=== PATIENT | male | born 1945 | race American Indian/Alaskan Native ===

== ENCOUNTER 2016-07-10 16:04 | Emergency (ER) | payer MEDICARE ==
[2016-07-10 16:05] VITALS: BMI 33.4
--- NOTE | 2016-07-10 17:13 | C.PDOC ---
History Of Present Illness 71 y/o male presents to the ED with complaints of headache, left upper back pain , left humerus and ankle pain s/p fall. Pt slipped on ice earlier today and fell hitting the back of his head, LOC for a couple seconds. Pt came to and knew where he was, no seizure activity, able to ambulate at scene. Pt denies vomiting, dizziness, chest pain, SOB or any other complaints. - HPI Time Seen by Provider: 07/10/16 16:56 Chief Complaint (Nursing): Trauma History Per: Patient History/Exam Limitations: no limitations Onset/Duration Of Symptoms: Hrs Location Of Injury: Left: Ankle, Arm, Posterior: Back, Head Severity: Mild Recent travel outside of the [place]: No - Fall Fall:Prior To Injury: Slipped Past Medical History Reviewed: Historical Data, Nursing Documentation, Vital Signs Vital Signs: Last Vital Signs Temp 98.1 F 07/10/16 19:12 Pulse 69 07/10/16 19:12 Resp 18 07/10/16 19:12 BP 133/76 07/10/16 19:12 Pulse Ox 99 07/10/16 20:18 - Medical History PMH: HTN, Hypercholesterolemia Family History: States: Unknown Family Hx - Social History Hx Alcohol Use: Yes Hx Substance Use: No - Immunization History Hx Tetanus Toxoid Vaccination: Yes Hx Influenza Vaccination: Yes Hx Pneumococcal Vaccination: Yes Review Of Systems Except As Marked, All Systems Reviewed And Found Negative. Cardiovascular: Negative for: Chest Pain Respiratory: Negative for: Shortness of Breath Gastrointestinal: Negative for: Vomiting Musculoskeletal: Positive for: Shoulder Pain (left), Arm Pain (left upper arm), Other (left ankle pain) Neurological: Positive for: Headache Physical Exam - Physical Exam Appears: Non-toxic, No Acute Distress Skin: Warm, Dry, No Rash, No Ecchymosis Head: Normacephalic, Tenderness (occiput), Swelling (minimal) Nose: Normal Neck: Normal ROM, Supple Chest: Symmetrical Cardiovascular: Rhythm Regular, No Murmur Respiratory: Normal Breath Sounds, No Rales, No Rhonchi, No Wheezing Gastrointestinal/Abdominal: Soft, No Tenderness Extremity: Tenderness (diffuse tenderness to left humerus, full ROM of left shoulder; left anterior and posterior ankle tenderness, no swelling or deformity , full ROM. ), Capillary Refill (<2 seconds), No Deformity, No Swelling Pulses: Left Dorsalis Pedis: Normal Neurological/Psych: Oriented x3, Normal Speech, Normal Cognition, Normal Motor, Normal Sensation ED Course And Treatment O2 Sat by Pulse Oximetry: 99 (on room air) Pulse Ox Interpretation: Normal - Other Rad XR left ankle X-Ray: Viewed By Me, Read By Radiologist Interpretation: Left ankle radiographs. Indication: Pain, twist injury. Comparison: None available. Findings: 3 mm ossific fragment noted adjacent to the medial malleolus, suspected to reflect a tiny avulsion fracture. Partially imaged suspected ossific excrescence about the posterior aspect of the mid to the distal fibula. The remainder the visualized osseous structures appear intact. Soft tissue swelling. Vascular calcifications. Calcaneal enthesophyte. Degenerative changes about the partially imaged midfoot. Impression: 3 mm ossific fragment noted adjacent to the medial malleolus, likely a tiny avulsion fracture. Partially imaged suspected ossific excrescence about the posterior aspect of the mid to the distal fibula. No prior study available for comparison. Correlate with physical exam to exclude point tenderness. Soft tissue swelling. - CT Scan/US CT head Other Rad Studies (CT/US): Read By Radiologist, Radiology Report Reviewed CT/US Interpretation: PROCEDURE: CT HEAD WITHOUT CONTRAST. HISTORY: head injury with LOC. COMPARISON: None available. TECHNIQUE: Axial computed tomography images were obtained through the head/brain without intravenous contrast. Radiation dose: Total exam DLP = 11 95.90 mGy-cm. FINDINGS: HEMORRHAGE: No intracranial hemorrhage. BRAIN: Mild atrophy with prominence of the ventricles and sulci noted. No mass effect or edema. Mild scattered white matter hypodensities, which are nonspecific, but often seen with chronic microvascular ischemic disease. Please note that MRI with diffusion imaging is more sensitive in the detection of acute ischemic event. VENTRICLES: No hydrocephalus. CALVARIUM: Unremarkable. PARANASAL SINUSES: Unremarkable as visualized. No significant inflammatory changes. MASTOID AIR CELLS: Under aeration of the mastoid air cells; correlate for history of chronic mastoiditis. OTHER FINDINGS: None. IMPRESSION: No acute intracranial pathology identified. Incidental findings as above. Progress Note: Plan: CT head, XR left ankle. Although xray shows small avulsion off medial malleolus patient is not tender over this area. He is tender laterally but minimally swollen. He was placed in an air cast and is comfortable and able to fully weight bear. Reevaluation Time: :58 Reassessment Condition: Improved Disposition Counseled Patient/Family Regarding: Studies Performed, Need For Followup - Disposition Referrals: Jeanette Waldron MD [Staff Provider] - Disposition: HOME/ ROUTINE Disposition Time: 21:38 Condition: IMPROVED Additional Instructions: Take Tylenol if needed for pain. Apply ice to posterior scalp and left ankle intermittently for 2days. Instructions: Head Injury (ED), Ankle Sprain (ED) - Clinical Impression Clinical Impression: Head injury with loss of consciousness, Ankle sprain - Scribe Statement The provider has reviewed the documentation as recorded by the Daronibjeremiah Edouard Provider Attestation: All medical record entries made by the Daronibjeremiah were at my direction and personally dictated by me. I have reviewed the chart and agree that the record accurately reflects my personal performance of the history, physical exam, medical decision making, and the department course for this patient. I have also personally directed, reviewed, and agree with the discharge instructions and disposition.
--- NOTE | 2016-07-10 18:15 | CT ---
PROCEDURE: CT HEAD WITHOUT CONTRAST. HISTORY: head injury with LOC COMPARISON: None available. TECHNIQUE: Axial computed tomography images were obtained through the head/brain without intravenous contrast. Radiation dose: Total exam DLP = 11 95.90 mGy-cm. FINDINGS: HEMORRHAGE: No intracranial hemorrhage. BRAIN: Mild atrophy with prominence of the ventricles and sulci noted. No mass effect or edema. Mild scattered white matter hypodensities, which are nonspecific, but often seen with chronic microvascular ischemic disease. Please note that MRI with diffusion imaging is more sensitive in the detection of acute ischemic event. VENTRICLES: No hydrocephalus. CALVARIUM: Unremarkable. PARANASAL SINUSES: Unremarkable as visualized. No significant inflammatory changes. MASTOID AIR CELLS: Under aeration of the mastoid air cells; correlate for history of chronic mastoiditis. OTHER FINDINGS: None. IMPRESSION: No acute intracranial pathology identified. Incidental findings as above.
--- NOTE | 2016-07-10 18:23 | RAD ---
Left ankle radiographs Indication: Pain, twist injury Comparison: None available Findings: 3 mm ossific fragment noted adjacent to the medial malleolus, suspected to reflect a tiny avulsion fracture. Partially imaged suspected ossific excrescence about the posterior aspect of the mid to the distal fibula. The remainder the visualized osseous structures appear intact. Soft tissue swelling. Vascular calcifications. Calcaneal enthesophyte. Degenerative changes about the partially imaged midfoot. Impression: 3 mm ossific fragment noted adjacent to the medial malleolus, likely a tiny avulsion fracture. Partially imaged suspected ossific excrescence about the posterior aspect of the mid to the distal fibula. No prior study available for comparison. Correlate with physical exam to exclude point tenderness. Soft tissue swelling.
[2016-07-10 22:06] VITALS: BP 131/87; PULSE 77; RESP 20; TEMP 98.4; O2SAT 98
== END 2016-07-10 22:15 | disposition home or self-care (01) ==
LOC: C.ER 16:04
DX: S06.9X1A Unspecified intracranial injury with loss of consciousness of 30 minutes or less, initial encounter (principal); S93.402A Sprain of unspecified ligament of left ankle, initial encounter; W00.0XXA Fall on same level due to ice and snow, initial encounter; Y92.414 Local residential or business street as the place of occurrence of the external cause

== ENCOUNTER 2017-01-22 15:22 | Inpatient (IN) | payer MEDICARE ==
[2017-01-22 15:23] VITALS: BMI 33.4
--- NOTE | 2017-01-22 16:00 | C.PDOC ---
History Of Present Illness 71 y/o male with Hx of DM, HTN and HLD presents to ED sent by Bistro Attendant (Dr. Garcia) for evaluation of worsening intermittent chest pain and sob with exertion. Patient states he has had symptoms since April but they have worsened in the past 1 month. Patient also reports legs swelling L>R for 1 month. He denies cough, fever, palpitations, abdominal pain, nausea/vomiting/ diarrhea. Time Seen by Provider: 01/22/17 15:31 Chief Complaint (Nursing): Chest Pain History Per: Patient History/Exam Limitations: no limitations Onset/Duration Of Symptoms: Days Current Symptoms Are (Timing): Still Present Severity: Mild Past Medical History Reviewed: Historical Data, Nursing Documentation, Vital Signs Vital Signs: Last Vital Signs Temp 98 F 01/24/17 07:30 Pulse 63 01/24/17 07:30 Resp 17 01/24/17 07:30 BP 127/71 01/24/17 07:30 Pulse Ox 97 01/24/17 07:30 - Medical History PMH: HTN, Hypercholesterolemia Surgical History: No Surg Hx Family History: States: No Known Family Hx - Social History Hx Alcohol Use: Yes Hx Substance Use: No - Immunization History Hx Tetanus Toxoid Vaccination: Yes Hx Influenza Vaccination: Yes Hx Pneumococcal Vaccination: Yes Review Of Systems Except As Marked, All Systems Reviewed And Found Negative. Constitutional: Negative for: Fever, Chills Cardiovascular: Positive for: Chest Pain. Negative for: Palpitations Respiratory: Positive for: SOB with Excertion. Negative for: Cough Gastrointestinal: Negative for: Nausea, Vomiting, Abdominal Pain, Diarrhea Musculoskeletal: Positive for: Leg Pain Physical Exam - Physical Exam Appears: Well, Non-toxic, No Acute Distress, Other (speaking in full sentences) Skin: Normal Color, Warm, Dry, No Rash Head: Normacephalic Eye(s): bilateral: Normal Inspection Oral Mucosa: Moist Cardiovascular: Rhythm Regular Respiratory: Normal Breath Sounds, No Rales, No Rhonchi, No Wheezing Gastrointestinal/Abdominal: Normal Exam, Bowel Sounds, Soft, No Tenderness Extremity: Pedal Edema (+1 pitting edema B/L LEs ), No Deformity Extremity: Bilateral: Normal ROM Neurological/Psych: Oriented x3 ED Course And Treatment - Laboratory Results Result Diagrams: 01/23/17 04:08 01/23/17 04:08 ECG: Interpreted By Me, Viewed By Me ECG Rhythm: Sinus Rhythm ECG Interpretation: Normal Interpretation Of ECG: Normal axis. No st acutechanges. T-Wave inversions in AVL, V1, V2 and V6. Compared to previous: T wave inversion in V6 is new Rate From EC (bpm) O2 Sat by Pulse Oximetry: 98 (ra) Pulse Ox Interpretation: Normal - Radiology CXR: Interpreted by Me, Viewed By Me CXR Interpretation: Yes: No Acute Disease. No: Infiltrates Progress Note: Bood work, ECG, CXR ordered and reviewed. Patient given PO ASA. 5:25pm- Spoke with Dr. Haider, he will see patient on cardiology consult. Patient to be admitted to medical service. Pending call back from Dr. Valerio. 6:22pm- Discussed patient with Dr. Valerio, agrees with telemetry admission to her service. - Physician Consult Information Physician Contacted: Jack Andino Outcome Of Conversation: Discussed patient with his cardioloigist Dr. Andino, would like patient admitted and to have nuclear stress test - he does not come to [facility] [place], requests Dr. Haider for cardiology. Disposition - Disposition Disposition: HOSPITALIZED Disposition Time: 18:22 Condition: STABLE - Clinical Impression Clinical Impression: Chest pain, Dyspnea - Scribe Statement The provider has reviewed the documentation as recorded by the Scribe Nargis Lewis All medical record entries made by the Scribe were at my direction and personally dictated by me. I have reviewed the chart and agree that the record accurately reflects my personal performance of the history, physical exam, medical decision making, and the department course for this patient. I have also personally directed, reviewed, and agree with the discharge instructions and disposition. Decision To Admit - Pt Status Changed To: Hospital Disposition Of: Inpatient - Admit Certification Admit to Inpatient:: After my assessment, the patient will require hospitalization for at least two midnights. This is because of the severity of symptoms shown, intensity of services needed, and/or the medical risk in this patient being treated as an outpatient. - InPatient: Physician Admission Certification: I certify that this patient requires 2 or more midnights of care for the following reason:: see notes - . Bed Request Type: Telemetry Admitting Physician: Gavin Batista Patient Diagnosis: Chest pain, Dyspnea
[2017-01-22 16:28] LABS: CHLORIDE 98 mmol/L (98-107); POTASSIUM 4.1 mmol/L (3.6-5.2); SODIUM 136 mmol/L (132-148)
[2017-01-22 16:30] LABS: ALB/GLOB RATIO 1.3 (1.0-2.1); ALKALINE PHOSPHATASE 57 U/L (38-126); AST/SGOT 21 U/L (17-59); BILIRUBIN,TOTAL 0.5 mg/dL (0.2-1.3); BLOOD UREA NITROGEN 16 mg/dL (9-20); CARBON DIOXIDE 24 mmol/L (22-30); GFR AFRICAN-AMERICAN > 60; TOTAL PROTEIN 6.8 g/dL (6.3-8.3)
[2017-01-22 16:31] LABS: ALT/SGPT 27 U/L (21-72); BASO % 0.8 % (0.0-2.0); CALCIUM 8.9 mg/dl (8.6-10.4); EOS # 0.2 K/uL (0.0-0.7); EOS % 3.8 % (0.0-4.0); GLUCOSE,RANDOM 85 mg/dL (75-110); HEMATOCRIT 41.2 % (35.0-51.0); LYMPH # 1.8 K/uL (1.0-4.3); LYMPH % 36.3 % (20.0-40.0); MEAN CELL VOLUME 69.6 fL (80.0-94.0); MEAN CORPUSCULAR HEMOGLOBIN 22.4 pg (27.0-31.0); MEAN CORPUSCULAR HGB CONC 32.2 g/dL (33.0-37.0); MEAN PLATELET VOLUME 8.8 fL (7.2-11.7); MONO # 0.7 K/uL (0.0-0.8); MONO % 14.3 % (0.0-10.0); NRBC % 0.2 % (0.0-2.0); RED CELL DISTRIBUTION WIDTH 17.8 % (11.5-14.5); WHITE BLOOD COUNT 4.9 K/uL (4.8-10.8)
[2017-01-22 16:37] LABS: PARTIAL THROMBOPLASTIN TIME 29 SECONDS (21-34)
--- NOTE | 2017-01-22 16:41 | RAD ---
PROCEDURE: CHEST RADIOGRAPH, 1 VIEW HISTORY: Shortness of breath COMPARISON: 03/11/2016. FINDINGS: LUNGS: The lungs are well inflated and clear. PLEURA: No pneumothorax or pleural fluid seen. CARDIOVASCULAR: Normal. OSSEOUS STRUCTURES: No significant abnormalities. VISUALIZED UPPER ABDOMEN: Normal. OTHER FINDINGS: None. IMPRESSION: No active pulmonary disease.
--- NOTE | 2017-01-22 21:37 | CP.PCM.HP ---
History of Present Illness - History of Present Illness History of Present Illness: pt is seen and examined,H&P dictated for dr. Arambula #[id number] Present on Admission - Present on Admission Any Indicators Present on Admission: No History of DVT/PE: No History of Uncontrolled Diabetes: No Urinary Catheter: No Past Patient History - Infectious Disease Hx of Infectious Diseases: None - Past Medical History & Family History Past Medical History?: Yes - Past Social History Smoking Status: Never Smoked - CARDIAC Hx Hypercholesterolemia: Yes Hx Hypertension: Yes - ENDOCRINE/METABOLIC Hx Diabetes Mellitus Type 2: Yes - MUSCULOSKELETAL/RHEUMATOLOGICAL Hx Falls: No - GENITOURINARY/GYNECOLOGICAL Hx Prostate Problems: Yes - PSYCHIATRIC Hx Substance Use: No - SURGICAL HISTORY Hx Surgeries: Yes Hx Joint Replacement: Yes (RT HIP) Other/Comment: Abdominal sx - ANESTHESIA Hx Anesthesia: Yes Hx Anesthesia Reactions: No Meds Allergies/Adverse Reactions: Allergies Allergy/AdvReac Type Severity Reaction Status Date / Time No Known Allergies Allergy Verified 01/22/17 15:37 Results - Vital Signs Recent Vital Signs: Last Vital Signs Temp 99.0 F 01/22/17 18:55 Pulse 64 01/22/17 18:55 Resp 12 01/22/17 18:55 BP 136/60 01/22/17 18:55 Pulse Ox 100 01/22/17 18:55 - Labs Result Diagrams: 01/22/17 16:10 01/22/17 16:10 Labs: Laboratory Results - last 24 hr 01/22/17 01/22/17 01/22/17 16:10 16:10 16:10 WBC 4.9 RBC 5.92 H Hgb 13.3 Hct 41.2 MCV 69.6 L MCH 22.4 L MCHC 32.2 L RDW 17.8 H Plt Count 171 MPV 8.8 Neut % (Auto) 44.8 L Lymph % (Auto) 36.3 [place] % (Auto) 14.3 H Eos % (Auto) 3.8 Baso % (Auto) 0.8 Neut # 2.2 Lymph # 1.8 [place] # 0.7 Eos # 0.2 Baso # 0.0 PT 11.1 INR 1.0 APTT 29 D-Dimer, Quantitative < 200 Sodium 136 Potassium 4.1 Chloride 98 Carbon Dioxide 24 Anion Gap 19 BUN 16 Creatinine 0.8 Est GFR ( Amer) > 60 Est GFR (Non-Af Amer) > 60 POC Glucose (mg/dL) Random Glucose 85 Calcium 8.9 Total Bilirubin 0.5 AST 21 ALT 27 Alkaline Phosphatase 57 Total Creatine Kinase 276 H CK-MB (Mass) 4.70 H Troponin I < 0.0120 NT-Pro-B Natriuret Pep 247 Total Protein 6.8 Albumin 3.8 Globulin 3.0 Albumin/Globulin Ratio 1.3 01/22/17 16:16 WBC RBC Hgb Hct MCV MCH MCHC RDW Plt Count MPV Neut % (Auto) Lymph % (Auto) [place] % (Auto) Eos % (Auto) Baso % (Auto) Neut # Lymph # [place] # Eos # Baso # PT INR APTT D-Dimer, Quantitative Sodium Potassium Chloride Carbon Dioxide Anion Gap BUN Creatinine Est GFR ( Amer) Est GFR (Non-Af Amer) POC Glucose (mg/dL) 98 Random Glucose Calcium Total Bilirubin AST ALT Alkaline Phosphatase Total Creatine Kinase CK-MB (Mass) Troponin I NT-Pro-B Natriuret Pep Total Protein Albumin Globulin Albumin/Globulin Ratio
[2017-01-23] MEDS: (Novolin R) Insulin Human Regular 100 units/ml vial SC SCH ×5 (00:47→22:00)
[2017-01-23 04:15] LABS: HEMATOCRIT 40.5 % (35.0-51.0); MEAN CELL VOLUME 69.4 fL (80.0-94.0); MEAN CORPUSCULAR HEMOGLOBIN 22.6 pg (27.0-31.0); MEAN CORPUSCULAR HGB CONC 32.6 g/dL (33.0-37.0); MEAN PLATELET VOLUME 8.9 fL (7.2-11.7); RED CELL DISTRIBUTION WIDTH 17.4 % (11.5-14.5); WHITE BLOOD COUNT 4.9 K/uL (4.8-10.8)
[2017-01-23 04:19] LABS: CHLORIDE 100 mmol/L (98-107); SODIUM 138 mmol/L (132-148)
[2017-01-23 04:20] LABS: POTASSIUM 4.1 mmol/L (3.6-5.2)
[2017-01-23 04:21] LABS: CARBON DIOXIDE 26 mmol/L (22-30); CHOLESTEROL 144 mg/dL (0-199); GFR AFRICAN-AMERICAN > 60
[2017-01-23 04:22] LABS: ALB/GLOB RATIO 1.2 (1.0-2.1); ALKALINE PHOSPHATASE 52 U/L (38-126); ALT/SGPT 31 U/L (21-72); AST/SGOT 21 U/L (17-59); BILIRUBIN,TOTAL 0.6 mg/dL (0.2-1.3); BLOOD UREA NITROGEN 14 mg/dL (9-20); CALCIUM 9.1 mg/dl (8.6-10.4); GLUCOSE,RANDOM 113 mg/dL (75-110); TOTAL PROTEIN 6.5 g/dL (6.3-8.3)
[2017-01-23 04:53] LABS: THYROID STIMULATING HORMONE 2.31 mIU/L (0.46-4.68)
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
--- NOTE | 2017-01-23 11:53 | CP.PCM.PN ---
Subjective - Date & Time of Evaluation Date of Evaluation: 01/23/17 Time of Evaluation: 11:20 - Subjective Subjective: Progress note dictated #[id number] Objective - Vital Signs/Intake and Output Vital Signs (last 24 hours): Temp Pulse Resp BP Pulse Ox 98 F 61 20 117/74 97 01/23/17 08:00 01/23/17 08:00 01/23/17 08:00 01/23/17 08:00 01/23/17 08:00 - Medications Medications: Current Medications Aspirin (Aspirin Chewable) 81 mg PO DAILY [facility] Last Admin: 01/23/17 11:27 Dose: Not Given Hydrochlorothiazide (Hydrodiuril) 25 mg PO DAILY [facility] Influenza Virus Vaccine (Afluria) 45 mcg IM .ONCE ONE Stop: 01/24/17 10:01 Insulin Human Regular (Novolin R) 0 unit SC ACHS [facility] PRN Reason: Protocol Last Admin: 01/23/17 07:50 Dose: Not Given Losartan Potassium (Cozaar) 100 mg PO DAILY [facility] Metformin HCl (Glucophage) 500 mg PO DAILY [facility] Metoprolol Succinate (Toprol Xl) 25 mg PO DAILY [facility] Multivitamins (Hexavitamin) 1 tab PO DAILY [facility] Pneumococcal Polyvalent Vaccine (Pneumovax 23 Vaccine) 0.5 ml IM .ONCE ONE Stop: 01/24/17 10:01 Rosuvastatin Calcium (Crestor) 10 mg PO HS [facility] Tamsulosin HCl (Flomax) 0.4 mg PO BID [facility] Last Admin: 01/23/17 00:46 Dose: 0.4 mg - Labs Labs: 01/23/17 04:08 01/23/17 04:08 PT 11.1 SECONDS (9.7-12.2) 01/22/17 16:10 INR 1.0 01/22/17 16:10 APTT 29 SECONDS (21-34) 01/22/17 16:10
--- NOTE | 2017-01-23 12:32 | CP.PCM.CON ---
History of Present Illness - History of Present Illness History of Present Illness: Patient is 71 year old male with PMH HTN, hypercholesterolemia, DM who presents with chest pain. The patiet describes a pressure like sensation in the left of his chest which developed over the last few weeks. The patient states his symptoms occur with exertion. The patient was noted to have associated dyspnea. He called his modern dancer (Dr. Andino) who recommended inpatient evaluation. Review of Systems - Constitutional Constitutional: absent: As Per HPI, Anorexia, Chills, Daytime Sleepiness, Excessive Sweating, Fatigue, Fever, Frequent Falls, Headache, Increased Appetite , Lethargy, Malaise, Night Sweats, Snoring, Sleep Apnea, Weight Gain, Weight Loss, Weakness, Other - EENT Eyes: absent: As Per HPI, Blind Spots, Blurred Vision, Change in Vision, Decreased Night Vision, Diplopia, Discharge, Dry Eye, Exophthalmos, Floaters, Irritation, Itchy Eyes, Loss of Peripheral Vision, Pain, Photophobia, Requires Corrective Lenses, Sees Flashes, Spots in Vision, Tunnel Vision, Other Visual Disturbances, Loss of Vision, Other Ears: absent: As Per HPI, Decreased Hearing, Ear Discharge, Ear Pain, Tinnitus, Abnormal Hearing, Disequilibrium, Dizziness, Other Nose/Mouth/Throat: absent: As Per HPI, Epistaxis, Nasal Congestion, Nasal Discharge, Nasal Obstruction, Nasal Trauma, Nose Pain, Post Nasal Drip, Sinus Pain, Sinus Pressure, Bleeding Gums, Change in Voice, Dental Pain, Dry Mouth, Dysphagia, Halitosis, Hoarsness, Lip Swelling, Mouth Lesions, Mouth Pain, Odynophagia, Sore Throat, Throat Swelling, Tongue Swelling, Facial Pain, Neck Pain, Neck Mass, Other - Cardiovascular Cardiovascular: Chest Pain, Dyspnea - Respiratory Respiratory: Dyspnea - Gastrointestinal Gastrointestinal: absent: As Per HPI, Abdominal Pain, Belching, Bloating, Change in Bowel Habits, Change in Stool Character, Coffee Ground Emesis, Constipation, Cramping, Diarrhea, Dyspepsia, Dysphagia, Early Satiety, Excessive Flatus, Fecal Incontinence, Heartburn, Hematemesis, Hematochezia, Loose Stools, Melena, Nausea, Odynophagia, Temesmus, Vomiting, Other - Genitourinary Genitourinary: absent: As Per HPI, Change in Urinary Stream, Difficulty Urinating, Dysuria, Flank Pain, Hematuria, Pyuria, Nocturia, Urinary Incontinence, Urinary Frequency, Urinary Hesitance, Urinary Urgency, Voiding Freq/Small Amts, Freq UTI, Hx Renal/Bladder Calculi, Hx /Renal Surgery, Bladder Distension, Other - Musculoskeletal Musculoskeletal: absent: As Per HPI, Abnormal Gait, Arthralgias, Atrophy, Back Pain, Deformity, Joint Swelling, Limited Range of Motion, Loss of Height, Muscle Cramps, Muscle Weakness, Myalgias, Neck Pain, Numbness, Radiating Pain into Limb, Stiffness, Tingling, Other - Integumentary Integumentary: absent: As Per HPI, Acne, Alopecia, Bleeding Lesions, Change in Hair, Change in Nails, Change in Pigmentation, Changing Lesions, Dry Skin, Erythema, Furuncle, Hirsutism, Lesions, New Lesions, Non-Healing Lesions, Photosensitivity, Pruritus, Rash, Skin Pain, Skin Ulcer, Sores, Striae, Swelling , Unusual Bruising, Wounds, Jaundice, Other - Neurological Neurological: absent: As Per HPI, Abnormal Gait, Abnormal Hearing, Abnormal Movements, Abnormal Speech, Behavioral Changes, Burning Sensations, Confusion, Convulsions, Disequilibrium, Dizziness, Numbness, Focal Weakness, Frequent Falls , Headaches, Lack of Coordination, Loss of Vision, Memory Loss, Paresthesias, Radicular Pain, Restless Legs, Sensory Deficit, Syncope, Tingling, Tremor, Vertigo, Weakness, Other Visual Disturbances, Other - Psychiatric Psychiatric: absent: As Per HPI, Abnormal Sleep Pattern, Anhedonia, Anxiety, Auditory Hallucinations, Behavioral Changes, Change in Appetite, Change in Libido, Confusion, Depression, Difficulty Concentrating, Hallucinations, Homicidal Ideation, Hopelessness, Irritability, Memory Loss, Mood Swings, Panic Attacks, Paranoia, Suicidal Ideation, Visual Hallucinations, Tactile Hallucinations, Other - Endocrine Endocrine: absent: As Per HPI, Change in Body Appearance, Change in Libido, Cold Intolorance, Deepening of Voice, Excessive Sweating, Fatigue, Flushing, Heat Intolorance, Increase in Ring/Shoe/Hat Size, Palpitations, Polydipsia, Polyphagia, Polyuria, Other - Hematologic/Lymphatic Hematologic: absent: As Per HPI, Easy Bleeding, Easy Bruising, Lymphadenopathy, Other Past Patient History - Infectious Disease Hx of Infectious Diseases: None - Past Medical History & Family History Past Medical History?: Yes - Past Social History Smoking Status: Never Smoked - CARDIAC Hx Hypercholesterolemia: Yes Hx Hypertension: Yes - ENDOCRINE/METABOLIC Hx Diabetes Mellitus Type 2: Yes - MUSCULOSKELETAL/RHEUMATOLOGICAL Hx Falls: No - GENITOURINARY/GYNECOLOGICAL Hx Prostate Problems: Yes - PSYCHIATRIC Hx Substance Use: No - SURGICAL HISTORY Hx Surgeries: Yes Hx Joint Replacement: Yes (RT HIP) Other/Comment: Abdominal sx - ANESTHESIA Hx Anesthesia: Yes Hx Anesthesia Reactions: No Meds Allergies/Adverse Reactions: Allergies Allergy/AdvReac Type Severity Reaction Status Date / Time No Known Allergies Allergy Verified 01/22/17 15:37 - Medications Medications: Current Medications Aspirin (Aspirin Chewable) 81 mg PO DAILY [facility] Last Admin: 01/23/17 11:27 Dose: Not Given Hydrochlorothiazide (Hydrodiuril) 25 mg PO DAILY [facility] Influenza Virus Vaccine (Afluria) 45 mcg IM .ONCE ONE Stop: 01/24/17 10:01 Insulin Human Regular (Novolin R) 0 unit SC ACHS [facility] PRN Reason: Protocol Last Admin: 01/23/17 07:50 Dose: Not Given Losartan Potassium (Cozaar) 100 mg PO DAILY [facility] Metformin HCl (Glucophage) 500 mg PO DAILY [facility] Metoprolol Succinate (Toprol Xl) 25 mg PO DAILY [facility] Multivitamins (Hexavitamin) 1 tab PO DAILY [facility] Pneumococcal Polyvalent Vaccine (Pneumovax 23 Vaccine) 0.5 ml IM .ONCE ONE Stop: 01/24/17 10:01 Rosuvastatin Calcium (Crestor) 10 mg PO HS [facility] Tamsulosin HCl (Flomax) 0.4 mg PO BID [facility] Last Admin: 01/23/17 00:46 Dose: 0.4 mg Physical Exam - Constitutional Appears: Non-toxic - Head Exam Head Exam: NORMAL INSPECTION - Eye Exam Eye Exam: Normal appearance - ENT Exam ENT Exam: Mucous Membranes Moist - Neck Exam Neck exam: Positive for: Full Rom - Respiratory Exam Respiratory Exam: NORMAL BREATHING PATTERN - Cardiovascular Exam Cardiovascular Exam: REGULAR RHYTHM - GI/Abdominal Exam GI & Abdominal Exam: Normal Bowel Sounds - Rectal Exam Rectal Exam: Deferred - Extremities Exam Extremities exam: Negative for: pedal edema - Back Exam Back exam: NORMAL INSPECTION - Neurological Exam Neurological exam: Alert, Oriented x3 - Psychiatric Exam Psychiatric exam: Normal Affect Results - Vital Signs Recent Vital Signs: Last Vital Signs Temp 98 F 01/23/17 08:00 Pulse 61 01/23/17 08:00 Resp 20 01/23/17 08:00 BP 117/74 01/23/17 08:00 Pulse Ox 97 01/23/17 08:00 - Labs Result Diagrams: 01/23/17 04:08 01/23/17 04:08 Labs: Laboratory Results - last 24 hr 01/22/17 01/22/17 01/22/17 16:10 16:10 16:10 WBC 4.9 RBC 5.92 H Hgb 13.3 Hct 41.2 MCV 69.6 L MCH 22.4 L MCHC 32.2 L RDW 17.8 H Plt Count 171 MPV 8.8 Neut % (Auto) 44.8 L Lymph % (Auto) 36.3 Piatt % (Auto) 14.3 H Eos % (Auto) 3.8 Baso % (Auto) 0.8 Neut # 2.2 Lymph # 1.8 Piatt # 0.7 Eos # 0.2 Baso # 0.0 Differential Comment PT 11.1 INR 1.0 APTT 29 D-Dimer, Quantitative < 200 Sodium 136 Potassium 4.1 Chloride 98 Carbon Dioxide 24 Anion Gap 19 BUN 16 Creatinine 0.8 Est GFR ( Amer) > 60 Est GFR (Non-Af Amer) > 60 POC Glucose (mg/dL) Random Glucose 85 Calcium 8.9 Total Bilirubin 0.5 AST 21 ALT 27 Alkaline Phosphatase 57 Total Creatine Kinase 276 H CK-MB (Mass) 4.70 H Troponin I < 0.0120 NT-Pro-B Natriuret Pep 247 Total Protein 6.8 Albumin 3.8 Globulin 3.0 Albumin/Globulin Ratio 1.3 Triglycerides Cholesterol LDL Cholesterol Direct HDL Cholesterol TSH 3rd Generation 01/22/17 01/23/17 01/23/17 16:16 00:46 04:08 WBC 4.9 RBC 5.83 Hgb 13.2 Hct 40.5 MCV 69.4 L MCH 22.6 L MCHC 32.6 L RDW 17.4 H Plt Count 158 MPV 8.9 Neut % (Auto) Lymph % (Auto) Piatt % (Auto) Eos % (Auto) Baso % (Auto) Neut # Lymph # Piatt # Eos # Baso # Differential Comment PT INR APTT D-Dimer, Quantitative Sodium Potassium Chloride Carbon Dioxide Anion Gap BUN Creatinine Est GFR ( Amer) Est GFR (Non-Af Amer) POC Glucose (mg/dL) 98 137 H Random Glucose Calcium Total Bilirubin AST ALT Alkaline Phosphatase Total Creatine Kinase CK-MB (Mass) Troponin I NT-Pro-B Natriuret Pep Total Protein Albumin Globulin Albumin/Globulin Ratio Triglycerides Cholesterol LDL Cholesterol Direct HDL Cholesterol TSH 3rd Generation 01/23/17 01/23/17 01/23/17 04:08 07:00 12:19 WBC RBC Hgb Hct MCV MCH MCHC RDW Plt Count MPV Neut % (Auto) Lymph % (Auto) Piatt % (Auto) Eos % (Auto) Baso % (Auto) Neut # Lymph # Piatt # Eos # Baso # Differential Comment PT INR APTT D-Dimer, Quantitative Sodium 138 Potassium 4.1 Chloride 100 Carbon Dioxide 26 Anion Gap 17 BUN 14 Creatinine 0.7 L Est GFR ( Amer) > 60 Est GFR (Non-Af Amer) > 60 POC Glucose (mg/dL) 141 H 188 H Random Glucose 113 H Calcium 9.1 Total Bilirubin 0.6 AST 21 ALT 31 Alkaline Phosphatase 52 Total Creatine Kinase CK-MB (Mass) Troponin I < 0.0120 NT-Pro-B Natriuret Pep Total Protein 6.5 Albumin 3.5 Globulin 3.0 Albumin/Globulin Ratio 1.2 Triglycerides 125 D Cholesterol 144 LDL Cholesterol Direct 100 HDL Cholesterol 33 TSH 3rd Generation 2.31 - EKG Data EKG Interpreted by: Myself EKG shows normal: Sinus rhythm Assessment & Plan (1) Chest pain Assessment and Plan: patient has cardiovascular risk factors. will need evaluatiion via nuclear perfusion imaging. Status: Acute (2) Non-insulin dependent type 2 diabetes mellitus Assessment and Plan: risk factor for CAD Status: Acute (3) Hypertension Assessment and Plan: will manage blood pressure Status: Acute
[2017-01-23] MEDS: Multiple Vitamins Tab PO SCH (12:35)
[2017-01-23] MEDS: Metoprolol Succinate 25 mg XL Tab PO SCH (12:35)
--- NOTE | 2017-01-23 14:12 | CARD ---
APPROVED REPORT EXAM: Two-dimensional and M-mode echocardiogram with Doppler and color Doppler. Other Information Quality : GoodRhythm : NSR INDICATION Dyspnea Chest Pain R/O ACS RISK FACTORS Hypertension Hyperlipidemia Diabetes 2D DIMENSIONS IVSd1.2 (0.7-1.1cm)LVDd4.5 (3.9-5.9cm) PWd1.2 (0.7-1.1cm)LVDs2.9 (2.5-4.0cm) FS (%) 35.9 %LVEF (%)65.7 (>50%) M-Mode DIMENSIONS Left Atrium (MM)4.56 (2.5-4.0cm)Aortic Root3.14 (2.2-3.7cm) Aortic Cusp Exc.2.21 (1.5-2.0cm) Mitral Valve MV E Qtrrkrnj51.8cm/sMV A Auwogdhx15.8cm/sE/A ratio1.0 TDI E/Lateral E'0.0E/Medial E'0.0 Tricuspid Valve TR Peak [id number]/sTR Peak Gr.[id number] LEFT VENTRICLE The left ventricle is normal size. There is mild concentric left ventricular hypertrophy. Left ventricle systolic function is normal. The Ejection Fraction is >70%. There is normal LV segmental wall motion. Transmitral Doppler flow pattern is Grade I-abnormal relaxation pattern. There is no ventricular septal defect visualized. RIGHT VENTRICLE The right ventricle is normal size. The right ventricular systolic function is normal. ATRIA The left atrium is borderline dilated. The right atrium size is normal. AORTIC VALVE The aortic valve is mildly sclerotic. The aortic valve is tri-cuspid. There is mild aortic regurgitation. There is no aortic valvular stenosis. MITRAL VALVE Mitral annular calcification is borderline. There is no evidence of mitral valve prolapse. Mitral regurgitation is mild. TRICUSPID VALVE The tricuspid valve is normal in structure. There is trace tricuspid regurgitation. There is no pulmonary hypertension. PULMONIC VALVE The pulmonic valve is not well visualized. There is trace pulmonic valvular regurgitation. GREAT VESSELS The aortic root is normal in size. The ascending aorta is normal in size. The IVC is normal in size and collapses >50% with inspiration. PERICARDIAL EFFUSION There is no pericardial effusion. <Conclusion> There is mild concentric left ventricular hypertrophy. Left ventricle systolic function is normal. The Ejection Fraction is >70%. Transmitral Doppler flow pattern is Grade I-abnormal relaxation pattern. There is mild aortic regurgitation. Mitral regurgitation is mild.
[2017-01-23] MEDS: Enoxaparin 40 mg Syringe SC SCH (14:52)
[2017-01-23 15:59] LABS: RBC URINE < 1 /hpf (0-3); URINE BILIRUBIN NEGATIVE (NEGATIVE); URINE BLOOD NEGATIVE (NEGATIVE); URINE COLOR Yellow (YELLOW); URINE GLUCOSE (UA) NORMAL (Normal); URINE KETONE NEGATIVE (NEGATIVE); URINE LEUKOCYTE ESTERASE TRACE Leu/uL (Negative); URINE PROTEIN NEGATIVE (NEGATIVE); URINE UROBILINOGEN NORMAL mg/dL (0.2-1.0); WBC URINE 3 /hpf (0-5)
--- NOTE | 2017-01-23 16:54 | CP.PCM.PN ---
Subjective - Date & Time of Evaluation Date of Evaluation: 01/23/17 Time of Evaluation: 16:50 - Subjective Subjective: stress test reviewed . normal myocardial perfusion patient stable for discharge Objective - Vital Signs/Intake and Output Vital Signs (last 24 hours): Temp Pulse Resp BP Pulse Ox 98 F 61 20 117/74 97 01/23/17 08:00 01/23/17 08:00 01/23/17 08:00 01/23/17 08:00 01/23/17 08:00 Intake and Output: 01/23/17 01/23/17 06:59 18:59 Intake Total 240 Balance 240 - Medications Medications: Current Medications Aspirin (Aspirin Chewable) 81 mg PO DAILY [facility] Last Admin: 01/23/17 12:35 Dose: 81 mg Enoxaparin Sodium (Lovenox) 40 mg SC DAILY [facility] Last Admin: 01/23/17 14:52 Dose: 40 mg Hydrochlorothiazide (Hydrodiuril) 25 mg PO DAILY [facility] Last Admin: 01/23/17 12:35 Dose: 25 mg Influenza Virus Vaccine (Afluria) 45 mcg IM .ONCE ONE Stop: 01/24/17 10:01 Insulin Human Regular (Novolin R) 0 unit SC [facility] PRN Reason: Protocol Last Admin: 01/23/17 12:34 Dose: 1 unit Losartan Potassium (Cozaar) 100 mg PO DAILY [facility] Last Admin: 01/23/17 12:35 Dose: 100 mg Metformin HCl (Glucophage) 500 mg PO DAILY [facility] Last Admin: 01/23/17 10:30 Dose: Not Given Metoprolol Succinate (Toprol Xl) 25 mg PO DAILY [facility] Last Admin: 01/23/17 12:35 Dose: 25 mg Multivitamins (Hexavitamin) 1 tab PO DAILY [facility] Last Admin: 01/23/17 12:35 Dose: 1 tab Pneumococcal Polyvalent Vaccine (Pneumovax 23 Vaccine) 0.5 ml IM .ONCE ONE Stop: 01/24/17 10:01 Rosuvastatin Calcium (Crestor) 10 mg PO [facility] Tamsulosin HCl (Flomax) 0.4 mg PO BID [facility] Last Admin: 01/23/17 12:35 Dose: 0.4 mg - Labs Labs: 01/23/17 04:08 01/23/17 04:08 PT 11.1 SECONDS (9.7-12.2) 01/22/17 16:10 INR 1.0 01/22/17 16:10 APTT 29 SECONDS (21-34) 01/22/17 16:10 Assessment and Plan (1) Chest pain Status: Acute (2) Non-insulin dependent type 2 diabetes mellitus Status: Acute (3) Hypertension Status: Acute
--- NOTE | 2017-01-24 08:01 | PN ---
DATE: 01/23/2017 SUBJECTIVE: The patient is seen and examined at bedside. The patient is undergoing stress test today. Denies any chest pain. Denies any shortness of breath. All other systems reviewed and was found to be negative. PHYSICAL EXAMINATION GENERAL: Elderly male, lying in bed, in no acute distress. VITAL SIGNS: Blood pressure 117/74, pulse 61, respirations 20, temperature 98 degrees Fahrenheit, O2 saturations 97% on room air. HEENT: Pupils equal, round, reacting to light and accommodation. Extraocular muscles intact. No icterus. No pallor. No oral thrush. No pharyngeal congestion. NECK: Supple. No JVD. CVS: S1 and S2 present, regular. LUNGS: Bilateral vesicular breath sounds. No wheezing. No rhonchi. ABDOMEN: Soft and nontender. Bowel sounds present. No guarding. No rigidity. No rebound tenderness noted. NETWORK RELATIONS CONSULTANT: Alert, awake and oriented x3. No focal deficits noted. EXTREMITIES: No edema. Palpable peripheral pulses. LABORATORY DATA: From today, WBC 4.9, hemoglobin 13.2, hematocrit 40.5, platelets 158. Sodium 138, potassium 4.1, chloride 100, bicarb 26, BUN 14, creatinine 0.7, glucose 141, calcium 9.1, total bilirubin 0.6. AST 21, ALT 31, alkaline phosphatase 52. Cardiac enzymes x3 negative. LFTs within normal limits. Triglycerides 125, cholesterol 144, LDL 100, HDL 33, TSH 2.31. UA negative. Echocardiogram consistent with EF more than . Mild aortic regurgitation. Mild mitral regurgitation. MEDICATIONS: Include aspirin 81 mg daily, Lovenox 40 mg subcutaneously daily, hydrochlorothiazide 25 mg daily, losartan 100 mg daily, Glucophage 500 mg daily, metoprolol 25 mg daily, multivitamin 1 tablet daily, Crestor 10 mg daily, Flomax 0.4 mg b.i.d. ASSESSMENT AND PLAN: Elderly male with past medical history of hypertension, diabetes mellitus, hyperlipidemia, admitted for dyspnea on exertion and chest pain and cardiac enzymes are negative so far. The patient is undergoing stress test. If stress test is negative and cleared by cardiology, we will plan discharging the patient home. We will continue the current medications. We will follow up with cardiology for further care. Gavin Batista MD [facility] # [phone]
[2017-01-24] MEDS: (Novolin R) Insulin Human Regular 100 units/ml vial SC SCH ×2 (08:02→12:17)
[2017-01-24 08:45] VITALS: BP 127/71; PULSE 63; RESP 17; TEMP 98
[2017-01-24] MEDS: Metoprolol Succinate 25 mg XL Tab PO SCH (09:14)
[2017-01-24] MEDS: Enoxaparin 40 mg Syringe SC SCH (09:14)
[2017-01-24] MEDS: Multiple Vitamins Tab PO SCH (09:22)
[2017-01-24] MEDS ORDERED: Influenza Virus Vaccine (Afluria Inactive dont use ) IM ONE (10:00)
[2017-01-24] MEDS ORDERED: Pneumococcal 23-Valent Vaccine IM ONE (10:00)
--- NOTE | 2017-01-24 14:23 | CP.PCM.PN ---
Subjective - Date & Time of Evaluation Date of Evaluation: 01/24/17 Time of Evaluation: 14:15 - Subjective Subjective: discharge summary dictated #[id number] Objective - Vital Signs/Intake and Output Vital Signs (last 24 hours): Temp Pulse Resp BP Pulse Ox 98 F 63 17 127/71 97 01/24/17 07:30 01/24/17 07:30 01/24/17 07:30 01/24/17 07:30 01/24/17 07:30 Intake and Output: 01/24/17 01/24/17 06:59 18:59 Intake Total 240 Balance 240 - Medications Medications: Current Medications Aspirin (Aspirin Chewable) 81 mg PO DAILY [facility] Last Admin: 01/24/17 09:14 Dose: 81 mg Enoxaparin Sodium (Lovenox) 40 mg SC DAILY [facility] Last Admin: 01/24/17 09:14 Dose: 40 mg Hydrochlorothiazide (Hydrodiuril) 25 mg PO DAILY [facility] Last Admin: 01/24/17 09:14 Dose: 25 mg Insulin Human Regular (Novolin R) 0 unit SC [facility] PRN Reason: Protocol Last Admin: 01/24/17 12:17 Dose: Not Given Losartan Potassium (Cozaar) 100 mg PO DAILY [facility] Last Admin: 01/24/17 09:14 Dose: 100 mg Metformin HCl (Glucophage) 500 mg PO DAILY [facility] Last Admin: 01/24/17 09:14 Dose: 500 mg Metoprolol Succinate (Toprol Xl) 25 mg PO DAILY [facility] Last Admin: 01/24/17 09:14 Dose: 25 mg Multivitamins (Hexavitamin) 1 tab PO DAILY [facility] Last Admin: 01/24/17 09:22 Dose: 1 tab Rosuvastatin Calcium (Crestor) 10 mg PO HS [facility] Last Admin: 01/23/17 21:16 Dose: 10 mg Tamsulosin HCl (Flomax) 0.4 mg PO BID [facility] Last Admin: 01/24/17 09:22 Dose: 0.4 mg - Labs Labs: 01/23/17 04:08 01/23/17 04:08 PT 11.1 SECONDS (9.7-12.2) 01/22/17 16:10 INR 1.0 01/22/17 16:10 APTT 29 SECONDS (21-34) 01/22/17 16:10
--- NOTE | 2017-01-25 02:42 | DS ---
DISCHARGE DIAGNOSES: Atypical chest pain with normal stress test as per cardiology, hypertension, hyperlipidemia, benign prostatic hypertrophy, and diabetes mellitus. HISTORY OF PRESENT ILLNESS: Mr. Bearden is a 71-year-old male with history of questionable nonobstructive coronary artery disease, hypertension, diabetes mellitus, hyperlipidemia, who has been following up with PMD and underwent cardiac catheterization in 2016, came to ED as recommended by his semaphore operator, Dr. Andino for symptoms of dyspnea on exertion to rule out any CAD or acute [place]. As stated, the patient is feeling much better. Denies any headache or dizziness. Denies any chest pain, shortness of breath, or wheezing. Denies any nausea, vomiting, abdominal pain, diarrhea, or constipation. All other systems reviewed and were found to be negative. PHYSICAL EXAMINATION: GENERAL: Elderly male, lying in bed, in no acute distress. VITAL SIGNS: Blood pressure 127/71, pulse 63, respirations 17, temperature 98 degrees Fahrenheit, and O2 saturations 97% on room air. HEENT: Pupils equal, round, and reactive to light and accommodation. Extraocular muscles intact. No icterus. No pallor. No oral thrush. No pharyngeal congestion. NECK: Supple. No JVD. No thyromegaly. CHEST: Lungs are clear bilaterally on respiration. Lungs, bilateral vesicular breath sounds. No wheezing. No rhonchi. CARDIOVASCULAR: S1 and S2 present, regular. ABDOMEN: Soft and nontender. Bowel sounds present. No guarding. No rigidity. No rebound tenderness noted. CENTRAL NERVOUS SYSTEM: Alert, awake, and oriented x3. No focal deficits noted. EXTREMITIES: No edema. Palpable peripheral pulses. LABORATORY DATA: Done from 01/23/2017, WBC 4.9, hemoglobin 13.2, hematocrit 40.5, and platelet 158. Sodium 138, potassium 4.1, chloride 100, bicarbonate 26, BUN 14, creatinine 0.7, glucose 141, calcium 9.1, total bilirubin 0.6, AST 21, and ALT 31. Cardiac enzymes x3 negative. Triglycerides 125, cholesterol 144, LDL 100, HDL 33, TSH 2.31. UA negative. As per cardiology, negative Myoview test. Echo with normal EF. HOSPITAL COURSE: The patient was admitted to the hospital for chest pain, rule out [place]. The patient was started on medication, evaluated by cardiology, and underwent Myoview stress test. As per cardiology, Myoview test was negative and the patient was cleared from cardiac standpoint. The patient is otherwise feeling better and doing well. The patient is being discharged and advised. The patient is to continue with his PMD and his semaphore operator. CONDITION UPON DISCHARGE: The patient is alert, awake, oriented x3, and hemodynamically stable. DISCHARGE MEDICATIONS: Aspirin 81 mg daily, atorvastatin 20 mg daily, hydrochlorothiazide 25 mg daily, metformin 500 mg daily, metoprolol 25 mg p.o. daily, multivitamin, Flomax 0.4 mg b.i.d., and valsartan 160 mg p.o. b.i.d. ACTIVITIES: As tolerated. DIET: Heart healthy, low sodium, low cholesterol, 1800-calorie ADA diet. DISCHARGE INSTRUCTIONS: Follow up with PMD. Follow up with cardiology. Please also refer to discharge medication reconciliation at the time of discharge. Gavin Batista MD
[2017-01-25 16:27] VITALS: O2SAT 98
== END 2017-01-24 15:28 | disposition home or self-care (01) | DRG 313 ==
LOC: C.ER 15:22 → C.9E 18:21 → C.6T 22:20
PROVIDERS: ADMIT Internal Medicine; ATTEND Internal Medicine
DX: R07.89 Other chest pain (principal); I25.10 Atherosclerotic heart disease of native coronary artery without angina pectoris; E11.9 Type 2 diabetes mellitus without complications; I10 Essential (primary) hypertension; E78.00 Pure hypercholesterolemia, unspecified; N40.0 Benign prostatic hyperplasia without lower urinary tract symptoms; Z79.84 Long term (current) use of oral hypoglycemic drugs; Z96.60 Presence of unspecified orthopedic joint implant

== ENCOUNTER 2017-08-15 17:39 | Inpatient (IN) | payer MEDICARE ==
[2017-08-15 17:39] VITALS: BMI 33.4
[2017-08-15 19:00] LABS: BASO % 0.7 % (0.0-2.0); EOS # 0.2 K/uL (0.0-0.7); EOS % 3.7 % (0.0-4.0); HEMOGLOBIN 13.3 g/dL (12.0-18.0); LYMPH # 1.8 K/uL (1.0-4.3); LYMPH % 36.4 % (20.0-40.0); MEAN CELL VOLUME 70.5 fL (80.0-94.0); MEAN CORPUSCULAR HEMOGLOBIN 22.5 pg (27.0-31.0); MEAN CORPUSCULAR HGB CONC 31.9 g/dL (33.0-37.0); MEAN PLATELET VOLUME 9.4 fL (7.2-11.7); MONO # 0.5 K/uL (0.0-0.8); MONO % 10.6 % (0.0-10.0); NEUT # 2.5 K/uL (1.8-7.0); NEUT % 48.6 % (50.0-75.0); NRBC % 0.1 % (0.0-2.0); RBC 5.92 Mil/uL (4.40-5.90); RED CELL DISTRIBUTION WIDTH 17.3 % (11.5-14.5); WHITE BLOOD COUNT 5.1 K/uL (4.8-10.8)
[2017-08-15 19:10] LABS: INR 0.9; PROTHROMBIN TIME 10.4 SECONDS (9.7-12.2)
--- NOTE | 2017-08-15 19:14 | C.PDOC ---
History Of Present Illness Patient presents to ED for complaints of SOB associated with chest discomfort and bilateral lower extremity edema. Patient states symptoms have worsened last few days which has prompted the ED visit. Patient is speaking in complete sentences. Denies fever, chills, nausea, and vomiting. Time Seen by Provider: 08/15/17 19:13 Chief Complaint (Nursing): Shortness Of Breath History Per: Patient History/Exam Limitations: no limitations Onset/Duration Of Symptoms: Hrs Current Symptoms Are (Timing): Still Present Exacerbating Factor(s): Exertion, Laying Flat Current Respiratory Medications: See Home Med List Severity: Moderate Pain Scale Rating Of: 4 Associated Symptoms: Other (Chest discomfort). denies: Fever, Chills Reports Recently: Treated By A Physician Recent travel outside of the [place]: No Additional History Per: Patient Past Medical History Reviewed: Historical Data, Nursing Documentation, Vital Signs Vital Signs: Last Vital Signs Temp 97.6 F 08/15/17 20:01 Pulse 75 08/15/17 20:01 Resp 16 08/15/17 20:01 BP 146/71 08/15/17 20:01 Pulse Ox 100 08/15/17 20:01 - Medical History PMH: HTN, Hypercholesterolemia Family History: States: No Known Family Hx - Social History Hx Alcohol Use: Yes Hx Substance Use: No - Immunization History Hx Tetanus Toxoid Vaccination: Yes Hx Influenza Vaccination: Yes Hx Pneumococcal Vaccination: Yes Review Of Systems Constitutional: Negative for: Fever, Chills ENT: Negative for: Throat Pain Cardiovascular: Positive for: Other (Chest discomfort) Respiratory: Positive for: Shortness of Breath. Negative for: Cough Gastrointestinal: Negative for: Nausea, Vomiting Musculoskeletal: Positive for: Other (Bilateral lower extremity edema). Negative for: Back Pain Skin: Negative for: Rash Neurological: Negative for: Weakness, Numbness Psych: Negative for: Anxiety, Suicidal ideation Physical Exam - Physical Exam Appears: Non-toxic, No Acute Distress Skin: Warm, Dry Head: Normacephalic Eye(s): bilateral: Normal Inspection Oral Mucosa: Moist Neck: Trachea Midline, Supple Chest: Symmetrical, No Tenderness Cardiovascular: Rhythm Regular Respiratory: No Decreased Breath Sounds, Rales (at bases), No Rhonchi, No Wheezing Gastrointestinal/Abdominal: Soft, No Tenderness Back: Normal Inspection Extremity: Pedal Edema (bilateral ), No Calf Tenderness Extremity: Bilateral: Atraumatic, Normal ROM Pulses: Left Dorsalis Pedis: Normal, Right Dorsalis Pedis: Normal Neurological/Psych: Oriented x3, Normal Speech, Normal Cognition, Other (no focal deficits) Gait: Steady ED Course And Treatment - Laboratory Results Result Diagrams: 08/15/17 18:55 08/15/17 18:55 O2 Sat by Pulse Oximetry: 95 (RA) Pulse Ox Interpretation: Normal Progress Note: Administered Aspirin. Ordered EKG, blood work, and CXR. Disposition Discussed With Dr.: Drake Garza Jr. Comment: accepted the pt on his service and took over the care at 8:45 AM Doctor Will See Patient In The: ED Counseled Patient/Family Regarding: Studies Performed, Diagnosis - Disposition Disposition: HOSPITALIZED Disposition Time: 19:13 Condition: FAIR Forms: [facility] (Telugu) - POA Present On Arrival: None - Clinical Impression Clinical Impression: Dyspnea, Chest pain - Scribe Statement The provider has reviewed the documentation as recorded by the Scribe Xander Su All medical record entries made by the Scribe were at my direction and personally dictated by me. I have reviewed the chart and agree that the record accurately reflects my personal performance of the history, physical exam, medical decision making, and the department course for this patient. I have also personally directed, reviewed, and agree with the discharge instructions and disposition. Decision To Admit - Pt Status Changed To: Hospital Disposition Of: Inpatient - Admit Certification Admit to Inpatient:: After my assessment, the patient will require hospitalization for at least two midnights. This is because of the severity of symptoms shown, intensity of services needed, and/or the medical risk in this patient being treated as an outpatient. - InPatient: Physician Admission Certification: I certify that this patient requires 2 or more midnights of care for the following reason:: After my assessment, the patient will require hospitalization for at least two midnights. This is because of the severity of symptoms shown, intensity of services needed, and/or the medical risk in this patient being treated as an outpatient. - . Bed Request Type: Telemetry Admitting Physician: Drake Garza Jr. Patient Diagnosis: Dyspnea, Chest pain
[2017-08-15 19:19] LABS: ALB/GLOB RATIO 1.1 (1.0-2.1); ALBUMIN 3.8 g/dL (3.5-5.0); ALT/SGPT 34 U/L (21-72); AST/SGOT 38 U/L (17-59); BLOOD UREA NITROGEN 7 mg/dL (9-20); CALCIUM 9.1 mg/dl (8.6-10.4); GFR AFRICAN-AMERICAN > 60; GFR NON-AFRICAN AMERICAN > 60
[2017-08-15 19:26] LABS: B-TYPE NATRIURETIC PEPTIDE 209 pg/mL (0-900); CK-MB 8.56 ng/mL (0.0-3.38)
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
[2017-08-15] MEDS ORDERED: Dextrose 50% SYRINGE Inj (50 ml) IV PRN (23:23)
[2017-08-15] MEDS ORDERED: Glucagon Recombinant 1 mg Inj IM PRN (23:23)
[2017-08-16 01:13] VITALS: RESP 20
[2017-08-16 01:58] LABS: CK-MB 9.39 ng/mL (0.0-3.38)
[2017-08-16 03:07] VITALS: O2SAT 96
[2017-08-16] MEDS ORDERED: (Novolin R) Insulin Human Regular 100 units/ml vial SC SCH (07:30)
[2017-08-16 07:32] LABS: BASO % 0.8 % (0.0-2.0); EOS # 0.2 K/uL (0.0-0.7); EOS % 4.8 % (0.0-4.0); HEMOGLOBIN 14.2 g/dL (12.0-18.0); LYMPH # 1.8 K/uL (1.0-4.3); LYMPH % 42.5 % (20.0-40.0); MEAN CELL VOLUME 70.9 fL (80.0-94.0); MEAN CORPUSCULAR HGB CONC 32.4 g/dL (33.0-37.0); MEAN PLATELET VOLUME 9.4 fL (7.2-11.7); MONO # 0.6 K/uL (0.0-0.8); MONO % 14.9 % (0.0-10.0); NEUT # 1.5 K/uL (1.8-7.0); NRBC % 0.1 % (0.0-2.0); RBC 6.17 Mil/uL (4.40-5.90); RED CELL DISTRIBUTION WIDTH 17.4 % (11.5-14.5); WHITE BLOOD COUNT 4.1 K/uL (4.8-10.8)
[2017-08-16 07:42] LABS: PROTHROMBIN TIME 11.6 SECONDS (9.7-12.2)
--- NOTE | 2017-08-16 07:57 | CP.PCM.PN ---
Subjective - Date & Time of Evaluation Date of Evaluation: 08/16/17 Time of Evaluation: 07:54 - Subjective Subjective: Patient seen and examined at bedside states he had 3 weeks of chest pain that became acutely worse 3 days ago. Associated with SOB Still complaining of chest pain but greatly reduced. Rates 5/10 Complains of swelling of the lower ext but on pe there is no edema present. Objective - Vital Signs/Intake and Output Vital Signs (last 24 hours): Temp Pulse Resp BP Pulse Ox 98 F 64 20 116/66 96 08/16/17 04:52 08/16/17 04:52 08/16/17 04:52 08/16/17 04:52 08/16/17 03:06 - Medications Medications: Current Medications Aspirin (Aspirin Chewable) 81 mg PO DAILY [facility] Carvedilol (Coreg) 3.125 mg PO BID [facility] Clopidogrel Bisulfate (Plavix) 75 mg PO DAILY [facility] Last Admin: 08/15/17 22:24 Dose: 75 mg Dextrose (Dextrose 50% Inj) 0 ml IV STAT PRN; Protocol PRN Reason: Hypoglycemia Protocol Dextrose (Glutose 15) 0 gm PO ONCE PRN; Protocol PRN Reason: Hypoglycemia Protocol Famotidine (Pepcid) 20 mg PO DAILY [facility] Furosemide (Lasix) 40 mg IVP DAILY [facility] Last Admin: 08/15/17 22:23 Dose: 40 mg Glucagon (Glucagen Diagnostic Kit) 0 mg IM STAT PRN; Protocol PRN Reason: Hypoglycemia Protocol Hydrochlorothiazide (Hydrodiuril) 25 mg PO DAILY [facility] Dextrose (Dextrose 5% In Water 1000 Ml) 1,000 mls @ 0 mls/hr IV .Q0M PRN; Protocol; Per Protocol PRN Reason: Hypoglycemia Protocol Insulin Human Regular (Novolin R) 0 unit SC ACHS [facility] PRN Reason: Protocol Losartan Potassium (Cozaar) 100 mg PO DAILY [facility] Metformin HCl (Glucophage) 500 mg PO DAILY [facility] Rosuvastatin Calcium (Crestor) 10 mg PO HS [facility] Last Admin: 08/15/17 22:23 Dose: 10 mg Tamsulosin HCl (Flomax) 0.4 mg PO DAILY [facility] - Labs Labs: 08/16/17 07:18 08/15/17 18:55 PT 11.6 SECONDS (9.7-12.2) 08/16/17 07:18 INR 1.0 08/16/17 07:18 APTT 33 SECONDS (21-34) 08/16/17 07:18 - Constitutional Appears: Well - Head Exam Head Exam: ATRAUMATIC, NORMAL INSPECTION, NORMOCEPHALIC - Eye Exam Eye Exam: EOMI, Normal appearance, PERRL Pupil Exam: NORMAL ACCOMODATION, PERRL - ENT Exam ENT Exam: Mucous Membranes Moist, Normal Exam - Neck Exam Neck Exam: Full ROM, Normal Inspection. absent: Lymphadenopathy - Respiratory Exam Respiratory Exam: Clear to Ausculation Bilateral, NORMAL BREATHING PATTERN - Cardiovascular Exam Cardiovascular Exam: REGULAR RHYTHM, +S1, +S2. absent: Murmur - GI/Abdominal Exam GI & Abdominal Exam: Soft, Normal Bowel Sounds. absent: Tenderness - Extremities Exam Extremities Exam: absent: Joint Swelling, Pedal Edema - Back Exam Back Exam: NORMAL INSPECTION - Neurological Exam Neurological Exam: Alert, Awake, CN II-XII Intact, Normal Gait, Oriented x3 - Psychiatric Exam Psychiatric exam: Normal Affect, Normal Mood - Skin Skin Exam: Dry, Intact, Normal Color, Warm
[2017-08-16 07:59] LABS: ALB/GLOB RATIO 1.1 (1.0-2.1); ALT/SGPT 33 U/L (21-72); AST/SGOT 36 U/L (17-59); BLOOD UREA NITROGEN 8 mg/dL (9-20); CALCIUM 9.3 mg/dl (8.6-10.4); GFR AFRICAN-AMERICAN > 60; GFR NON-AFRICAN AMERICAN > 60; HDL CHOLESTEROL 43 mg/dL (30-70)
[2017-08-16 08:04] LABS: LDL CHOLESTEROL 85 mg/dL (0-129)
--- NOTE | 2017-08-16 08:34 | CP.PCM.CON ---
History of Present Illness - History of Present Illness History of Present Illness: patient seen/examined full consult to follow. chest pain and neck pain for the last 3 weeks. on examination the patinet is VERY tender in the left upper chest on palpation. CPK is elevated, but cardiac ezymesare negative. negative stress test December 2016. appears muscular. check echo consider CT chest to assess for soft tissue mass swelling Past Patient History - Infectious Disease Hx of Infectious Diseases: None - Past Medical History & Family History Past Medical History?: Yes - Past Social History Smoking Status: Never Smoked - CARDIAC Hx Cardiac Disorders: Yes Hx Hypercholesterolemia: Yes Hx Hypertension: Yes - PULMONARY Hx Respiratory Disorders: No - NEUROLOGICAL Hx Neurological Disorder: No - HEENT Hx HEENT Problems: Yes Other/Comment: Blurry Vision,wears eyeglasses - RENAL Hx Chronic Kidney Disease: No - ENDOCRINE/METABOLIC Hx Endocrine Disorders: Yes Hx Diabetes Mellitus Type 2: Yes - HEMATOLOGICAL/ONCOLOGICAL Hx Blood Disorders: No - INTEGUMENTARY Hx Dermatological Problems: No - MUSCULOSKELETAL/RHEUMATOLOGICAL Hx Musculoskeletal Disorders: No Hx Falls: No - GASTROINTESTINAL Hx Gastrointestinal Disorders: No - GENITOURINARY/GYNECOLOGICAL Hx Genitourinary Disorders: Yes Hx Prostate Problems: Yes - PSYCHIATRIC Hx Psychophysiologic Disorder: No Hx Substance Use: No - SURGICAL HISTORY Hx Surgeries: Yes Hx Joint Replacement: Yes (RT HIP 53 years ago) Other/Comment: Abdominal sx - ANESTHESIA Hx Anesthesia: Yes Hx Anesthesia Reactions: No Hx Malignant Hyperthermia: No Has any member of the family had a problem w/ anesthesia?: No Meds Allergies/Adverse Reactions: Allergies Allergy/AdvReac Type Severity Reaction Status Date / Time No Known Allergies Allergy Verified 01/22/17 15:37 - Medications Medications: Current Medications Aspirin (Aspirin Chewable) 81 mg PO DAILY [facility] Carvedilol (Coreg) 3.125 mg PO BID [facility] Clopidogrel Bisulfate (Plavix) 75 mg PO DAILY [facility] Last Admin: 08/15/17 22:24 Dose: 75 mg Dextrose (Dextrose 50% Inj) 0 ml IV STAT PRN; Protocol PRN Reason: Hypoglycemia Protocol Dextrose (Glutose 15) 0 gm PO ONCE PRN; Protocol PRN Reason: Hypoglycemia Protocol Famotidine (Pepcid) 20 mg PO DAILY [facility] Furosemide (Lasix) 40 mg IVP DAILY [facility] Last Admin: 08/15/17 22:23 Dose: 40 mg Glucagon (Glucagen Diagnostic Kit) 0 mg IM STAT PRN; Protocol PRN Reason: Hypoglycemia Protocol Hydrochlorothiazide (Hydrodiuril) 25 mg PO DAILY [facility] Dextrose (Dextrose 5% In Water 1000 Ml) 1,000 mls @ 0 mls/hr IV .Q0M PRN; Protocol; Per Protocol PRN Reason: Hypoglycemia Protocol Insulin Human Regular (Novolin R) 0 unit SC ACHS [facility] PRN Reason: Protocol Losartan Potassium (Cozaar) 100 mg PO DAILY [facility] Metformin HCl (Glucophage) 500 mg PO DAILY [facility] Rosuvastatin Calcium (Crestor) 10 mg PO HS [facility] Last Admin: 08/15/17 22:23 Dose: 10 mg Tamsulosin HCl (Flomax) 0.4 mg PO DAILY [facility] Results - Vital Signs Recent Vital Signs: Last Vital Signs Temp 98 F 08/16/17 04:52 Pulse 67 08/16/17 07:35 Resp 20 08/16/17 04:52 BP 116/66 08/16/17 04:52 Pulse Ox 96 08/16/17 03:06 - Labs Result Diagrams: 08/16/17 07:18 08/16/17 07:18 Labs: Laboratory Results - last 24 hr 08/15/17 08/15/17 08/15/17 17:59 18:55 18:55 WBC 5.1 RBC 5.92 H Hgb 13.3 Hct 41.7 MCV 70.5 L MCH 22.5 L MCHC 31.9 L RDW 17.3 H Plt Count 185 MPV 9.4 Neut % (Auto) 48.6 L Lymph % (Auto) 36.4 [place] % (Auto) 10.6 H Eos % (Auto) 3.7 Baso % (Auto) 0.7 Neut # (Auto) 2.5 Lymph # (Auto) 1.8 [place] # (Auto) 0.5 Eos # (Auto) 0.2 Baso # (Auto) 0.0 PT 10.4 INR 0.9 APTT 34 Sodium Potassium Chloride Carbon Dioxide Anion Gap BUN Creatinine Est GFR ( Amer) Est GFR (Non-Af Amer) POC Glucose (mg/dL) 113 H Random Glucose Calcium Phosphorus Magnesium Total Bilirubin AST ALT Alkaline Phosphatase Total Creatine Kinase CK-MB (Mass) Troponin I NT-Pro-B Natriuret Pep Total Protein Albumin Globulin Albumin/Globulin Ratio Triglycerides Cholesterol LDL Cholesterol Direct HDL Cholesterol Free T4 TSH 3rd Generation 08/15/17 08/15/17 08/16/17 18:55 22:04 01:26 WBC RBC Hgb Hct MCV MCH MCHC RDW Plt Count MPV Neut % (Auto) Lymph % (Auto) [place] % (Auto) Eos % (Auto) Baso % (Auto) Neut # (Auto) Lymph # (Auto) [place] # (Auto) Eos # (Auto) Baso # (Auto) PT INR APTT Sodium 139 Potassium 3.7 Chloride 97 L Carbon Dioxide 27 Anion Gap 19 BUN 7 L Creatinine 0.8 Est GFR ( Amer) > 60 Est GFR (Non-Af Amer) > 60 POC Glucose (mg/dL) 159 H Random Glucose 108 Calcium 9.1 Phosphorus Magnesium Total Bilirubin 0.4 AST 38 ALT 34 Alkaline Phosphatase 57 Total Creatine Kinase 766 H 641 H CK-MB (Mass) 8.56 H 9.39 H Troponin I < 0.0120 < 0.0120 NT-Pro-B Natriuret Pep 209 Total Protein 7.3 Albumin 3.8 Globulin 3.5 Albumin/Globulin Ratio 1.1 Triglycerides Cholesterol LDL Cholesterol Direct HDL Cholesterol Free T4 TSH 3rd Generation 08/16/17 08/16/17 08/16/17 06:57 07:18 07:18 WBC RBC Hgb Hct MCV MCH MCHC RDW Plt Count MPV Neut % (Auto) Lymph % (Auto) [place] % (Auto) Eos % (Auto) Baso % (Auto) Neut # (Auto) Lymph # (Auto) [place] # (Auto) Eos # (Auto) Baso # (Auto) PT INR APTT Sodium 138 Potassium 3.6 Chloride 97 L Carbon Dioxide 26 Anion Gap 18 BUN 8 L Creatinine 1.0 Est GFR ( Amer) > 60 Est GFR (Non-Af Amer) > 60 POC Glucose (mg/dL) 134 H Random Glucose 139 H Calcium 9.3 Phosphorus 3.4 Magnesium 1.9 Total Bilirubin 1.0 AST 36 ALT 33 Alkaline Phosphatase 69 Total Creatine Kinase CK-MB (Mass) Troponin I NT-Pro-B Natriuret Pep Total Protein 7.6 Albumin 4.0 Globulin 3.6 Albumin/Globulin Ratio 1.1 Triglycerides 141 Cholesterol 149 LDL Cholesterol Direct 85 HDL Cholesterol 43 Free T4 1.56 TSH 3rd Generation 2.46 08/16/17 08/16/17 08/16/17 07:18 07:18 07:36 WBC 4.1 L RBC 6.17 H Hgb 14.2 Hct 43.8 MCV 70.9 L MCH 23.0 L MCHC 32.4 L RDW 17.4 H Plt Count 174 MPV 9.4 Neut % (Auto) 37.0 L Lymph % (Auto) 42.5 H [place] % (Auto) 14.9 H Eos % (Auto) 4.8 H Baso % (Auto) 0.8 Neut # (Auto) 1.5 L Lymph # (Auto) 1.8 [place] # (Auto) 0.6 Eos # (Auto) 0.2 Baso # (Auto) 0.0 PT 11.6 INR 1.0 APTT 33 Sodium Potassium Chloride Carbon Dioxide Anion Gap BUN Creatinine Est GFR ( Amer) Est GFR (Non-Af Amer) POC Glucose (mg/dL) 133 H Random Glucose Calcium Phosphorus Magnesium Total Bilirubin AST ALT Alkaline Phosphatase Total Creatine Kinase CK-MB (Mass) Troponin I NT-Pro-B Natriuret Pep Total Protein Albumin Globulin Albumin/Globulin Ratio Triglycerides Cholesterol LDL Cholesterol Direct HDL Cholesterol Free T4 TSH 3rd Generation
--- NOTE | 2017-08-16 08:35 | CP.PCM.CON ---
Past Patient History - Infectious Disease Hx of Infectious Diseases: None - Past Medical History & Family History Past Medical History?: Yes - Past Social History Smoking Status: Never Smoked - CARDIAC Hx Cardiac Disorders: Yes Hx Hypercholesterolemia: Yes Hx Hypertension: Yes - PULMONARY Hx Respiratory Disorders: No - NEUROLOGICAL Hx Neurological Disorder: No - HEENT Hx HEENT Problems: Yes Other/Comment: Blurry Vision,wears eyeglasses - RENAL Hx Chronic Kidney Disease: No - ENDOCRINE/METABOLIC Hx Endocrine Disorders: Yes Hx Diabetes Mellitus Type 2: Yes - HEMATOLOGICAL/ONCOLOGICAL Hx Blood Disorders: No - INTEGUMENTARY Hx Dermatological Problems: No - MUSCULOSKELETAL/RHEUMATOLOGICAL Hx Musculoskeletal Disorders: No Hx Falls: No - GASTROINTESTINAL Hx Gastrointestinal Disorders: No - GENITOURINARY/GYNECOLOGICAL Hx Genitourinary Disorders: Yes Hx Prostate Problems: Yes - PSYCHIATRIC Hx Psychophysiologic Disorder: No Hx Substance Use: No - SURGICAL HISTORY Hx Surgeries: Yes Hx Joint Replacement: Yes (RT HIP 53 years ago) Other/Comment: Abdominal sx - ANESTHESIA Hx Anesthesia: Yes Hx Anesthesia Reactions: No Hx Malignant Hyperthermia: No Has any member of the family had a problem w/ anesthesia?: No Meds Allergies/Adverse Reactions: Allergies Allergy/AdvReac Type Severity Reaction Status Date / Time No Known Allergies Allergy Verified 01/22/17 15:37 - Medications Medications: Current Medications Aspirin (Aspirin Chewable) 81 mg PO DAILY [facility] Carvedilol (Coreg) 3.125 mg PO BID [facility] Clopidogrel Bisulfate (Plavix) 75 mg PO DAILY [facility] Last Admin: 08/15/17 22:24 Dose: 75 mg Dextrose (Dextrose 50% Inj) 0 ml IV STAT PRN; Protocol PRN Reason: Hypoglycemia Protocol Dextrose (Glutose 15) 0 gm PO ONCE PRN; Protocol PRN Reason: Hypoglycemia Protocol Famotidine (Pepcid) 20 mg PO DAILY [facility] Furosemide (Lasix) 40 mg IVP DAILY [facility] Last Admin: 08/15/17 22:23 Dose: 40 mg Glucagon (Glucagen Diagnostic Kit) 0 mg IM STAT PRN; Protocol PRN Reason: Hypoglycemia Protocol Hydrochlorothiazide (Hydrodiuril) 25 mg PO DAILY [facility] Dextrose (Dextrose 5% In Water 1000 Ml) 1,000 mls @ 0 mls/hr IV .Q0M PRN; Protocol; Per Protocol PRN Reason: Hypoglycemia Protocol Insulin Human Regular (Novolin R) 0 unit SC ACHS [facility] PRN Reason: Protocol Losartan Potassium (Cozaar) 100 mg PO DAILY [facility] Metformin HCl (Glucophage) 500 mg PO DAILY [facility] Rosuvastatin Calcium (Crestor) 10 mg PO HS [facility] Last Admin: 08/15/17 22:23 Dose: 10 mg Tamsulosin HCl (Flomax) 0.4 mg PO DAILY [facility] Results - Vital Signs Recent Vital Signs: Last Vital Signs Temp 98 F 08/16/17 04:52 Pulse 67 08/16/17 07:35 Resp 20 08/16/17 04:52 BP 116/66 08/16/17 04:52 Pulse Ox 96 08/16/17 03:06 - Labs Result Diagrams: 08/16/17 07:18 08/16/17 07:18 Labs: Laboratory Results - last 24 hr 08/15/17 08/15/17 08/15/17 17:59 18:55 18:55 WBC 5.1 RBC 5.92 H Hgb 13.3 Hct 41.7 MCV 70.5 L MCH 22.5 L MCHC 31.9 L RDW 17.3 H Plt Count 185 MPV 9.4 Neut % (Auto) 48.6 L Lymph % (Auto) 36.4 [place] % (Auto) 10.6 H Eos % (Auto) 3.7 Baso % (Auto) 0.7 Neut # (Auto) 2.5 Lymph # (Auto) 1.8 [place] # (Auto) 0.5 Eos # (Auto) 0.2 Baso # (Auto) 0.0 PT 10.4 INR 0.9 APTT 34 Sodium Potassium Chloride Carbon Dioxide Anion Gap BUN Creatinine Est GFR ( Amer) Est GFR (Non-Af Amer) POC Glucose (mg/dL) 113 H Random Glucose Calcium Phosphorus Magnesium Total Bilirubin AST ALT Alkaline Phosphatase Total Creatine Kinase CK-MB (Mass) Troponin I NT-Pro-B Natriuret Pep Total Protein Albumin Globulin Albumin/Globulin Ratio Triglycerides Cholesterol LDL Cholesterol Direct HDL Cholesterol Free T4 TSH 3rd Generation 08/15/17 08/15/17 08/16/17 18:55 22:04 01:26 WBC RBC Hgb Hct MCV MCH MCHC RDW Plt Count MPV Neut % (Auto) Lymph % (Auto) [place] % (Auto) Eos % (Auto) Baso % (Auto) Neut # (Auto) Lymph # (Auto) [place] # (Auto) Eos # (Auto) Baso # (Auto) PT INR APTT Sodium 139 Potassium 3.7 Chloride 97 L Carbon Dioxide 27 Anion Gap 19 BUN 7 L Creatinine 0.8 Est GFR ( Amer) > 60 Est GFR (Non-Af Amer) > 60 POC Glucose (mg/dL) 159 H Random Glucose 108 Calcium 9.1 Phosphorus Magnesium Total Bilirubin 0.4 AST 38 ALT 34 Alkaline Phosphatase 57 Total Creatine Kinase 766 H 641 H CK-MB (Mass) 8.56 H 9.39 H Troponin I < 0.0120 < 0.0120 NT-Pro-B Natriuret Pep 209 Total Protein 7.3 Albumin 3.8 Globulin 3.5 Albumin/Globulin Ratio 1.1 Triglycerides Cholesterol LDL Cholesterol Direct HDL Cholesterol Free T4 TSH 3rd Generation 08/16/17 08/16/17 08/16/17 06:57 07:18 07:18 WBC RBC Hgb Hct MCV MCH MCHC RDW Plt Count MPV Neut % (Auto) Lymph % (Auto) [place] % (Auto) Eos % (Auto) Baso % (Auto) Neut # (Auto) Lymph # (Auto) [place] # (Auto) Eos # (Auto) Baso # (Auto) PT INR APTT Sodium 138 Potassium 3.6 Chloride 97 L Carbon Dioxide 26 Anion Gap 18 BUN 8 L Creatinine 1.0 Est GFR ( Amer) > 60 Est GFR (Non-Af Amer) > 60 POC Glucose (mg/dL) 134 H Random Glucose 139 H Calcium 9.3 Phosphorus 3.4 Magnesium 1.9 Total Bilirubin 1.0 AST 36 ALT 33 Alkaline Phosphatase 69 Total Creatine Kinase CK-MB (Mass) Troponin I NT-Pro-B Natriuret Pep Total Protein 7.6 Albumin 4.0 Globulin 3.6 Albumin/Globulin Ratio 1.1 Triglycerides 141 Cholesterol 149 LDL Cholesterol Direct 85 HDL Cholesterol 43 Free T4 1.56 TSH 3rd Generation 2.46 08/16/17 08/16/17 08/16/17 07:18 07:18 07:36 WBC 4.1 L RBC 6.17 H Hgb 14.2 Hct 43.8 MCV 70.9 L MCH 23.0 L MCHC 32.4 L RDW 17.4 H Plt Count 174 MPV 9.4 Neut % (Auto) 37.0 L Lymph % (Auto) 42.5 H [place] % (Auto) 14.9 H Eos % (Auto) 4.8 H Baso % (Auto) 0.8 Neut # (Auto) 1.5 L Lymph # (Auto) 1.8 [place] # (Auto) 0.6 Eos # (Auto) 0.2 Baso # (Auto) 0.0 PT 11.6 INR 1.0 APTT 33 Sodium Potassium Chloride Carbon Dioxide Anion Gap BUN Creatinine Est GFR ( Amer) Est GFR (Non-Af Amer) POC Glucose (mg/dL) 133 H Random Glucose Calcium Phosphorus Magnesium Total Bilirubin AST ALT Alkaline Phosphatase Total Creatine Kinase CK-MB (Mass) Troponin I NT-Pro-B Natriuret Pep Total Protein Albumin Globulin Albumin/Globulin Ratio Triglycerides Cholesterol LDL Cholesterol Direct HDL Cholesterol Free T4 TSH 3rd Generation
--- NOTE | 2017-08-16 08:59 | RAD ---
PROCEDURE: CHEST RADIOGRAPH, 1 VIEW HISTORY: baseline COMPARISON: Portable chest 01/22/2017. FINDINGS: LUNGS: No acute infiltrate bilaterally. Borderline left hemidiaphragm elevation, nonspecific finding. PLEURA: No pneumothorax or pleural fluid seen. CARDIOVASCULAR: Normal. OSSEOUS STRUCTURES: No significant abnormalities. VISUALIZED UPPER ABDOMEN: Normal. OTHER FINDINGS: None. IMPRESSION: No acute infiltrate, pleural effusion or pneumothorax. No definite interval acute cardiovascular disease. Borderline left hemidiaphragm elevation noted.
[2017-08-16 09:37] VITALS: PULSE 72; TEMP 97.6
[2017-08-16 09:56] VITALS: BP 121/70
[2017-08-16] MEDS ORDERED: Enoxaparin 40 mg Syringe SC SCH (10:00)
--- NOTE | 2017-08-16 11:21 | RAD ---
PROCEDURE: Radiographs of the Left Shoulder HISTORY: shoulder pain after lifitng weights COMPARISON: No prior. FINDINGS: BONES: No acute fracture or destructive bony lesion identified. JOINTS: [id number] degenerative changes seen the acromioclavicular and glenohumeral joints without subluxation or dislocation apparent. SOFT TISSUES: Normal. OTHER FINDINGS: None. IMPRESSION: Degenerative changes appear [id number] as discussed above but no fracture, dislocation or destructive bony lesion is appreciated at this time.
[2017-08-16 14:00] LABS: CK-MB 5.43 ng/mL (0.0-3.38)
--- NOTE | 2017-08-16 14:48 | CP.PCM.DIS ---
Provider - Provider Date of Admission: 08/15/17 20:44 Attending physician: Drake Garza Jr, MD Time Spent in preparation of Discharge (in minutes): 45 Hospital Course - Lab Results Lab Results: Most Recent Lab Values WBC 4.1 K/uL (4.8-10.8) L 08/16/17 07:18 RBC 6.17 Mil/uL (4.40-5.90) H 08/16/17 07:18 Hgb 14.2 g/dL (12.0-18.0) 08/16/17 07:18 Hct 43.8 % (35.0-51.0) 08/16/17 07:18 MCV 70.9 fL (80.0-94.0) L 08/16/17 07:18 MCH 23.0 pg (27.0-31.0) L 08/16/17 07:18 MCHC 32.4 g/dL (33.0-37.0) L 08/16/17 07:18 RDW 17.4 % (11.5-14.5) H 08/16/17 07:18 Plt Count 174 K/uL (130-400) 08/16/17 07:18 MPV 9.4 fL (7.2-11.7) 08/16/17 07:18 Neut % (Auto) 37.0 % (50.0-75.0) L 08/16/17 07:18 Lymph % (Auto) 42.5 % (20.0-40.0) H 08/16/17 07:18 [place] % (Auto) 14.9 % (0.0-10.0) H 08/16/17 07:18 Eos % (Auto) 4.8 % (0.0-4.0) H 08/16/17 07:18 Baso % (Auto) 0.8 % (0.0-2.0) 08/16/17:18 Neut # (Auto) 1.5 K/uL (1.8-7.0) L 08/16/17 07:18 Lymph # (Auto) 1.8 K/uL (1.0-4.3) 08/16/17 07:18 [place] # (Auto) 0.6 K/uL (0.0-0.8) 08/16/17 07:18 Eos # (Auto) 0.2 K/uL (0.0-0.7) 08/16/17 07:18 Baso # (Auto) 0.0 K/uL (0.0-0.2) 08/16/17 07:18 PT 11.6 SECONDS (9.7-12.2) 08/16/17 07:18 INR 1.0 08/16/17 07:18 APTT 33 SECONDS (21-34) 08/16/17 07:18 Sodium 138 mmol/L (132-148) 08/16/17 07:18 Potassium 3.6 mmol/L (3.6-5.2) 08/16/17 07:18 Chloride 97 mmol/L (98-107) L 08/16/17 07:18 Carbon Dioxide 26 mmol/L (22-30) 08/16/17 07:18 Anion Gap 18 (10-20) 08/16/17 07:18 BUN 8 mg/dL (9-20) L 08/16/17 07:18 Creatinine 1.0 mg/dL (0.8-1.5) 08/16/17 07:18 Est GFR ( Amer) > 60 08/16/17 07:18 Est GFR (Non-Af Amer) > 60 08/16/17 07:18 POC Glucose (mg/dL) 133 mg/dL (65-110) H 08/16/17 07:36 Random Glucose 139 mg/dL (75-110) H 08/16/17 07:18 Calcium 9.3 mg/dl (8.6-10.4) 08/16/17 07:18 Phosphorus 3.4 mg/dL (2.5-4.5) 08/16/17 07:18 Magnesium 1.9 mg/dL (1.6-2.3) 08/16/17 07:18 Total Bilirubin 1.0 mg/dL (0.2-1.3) 08/16/17 07:18 AST 36 U/L (17-59) 08/16/17 07:18 ALT 33 U/L (21-72) 08/16/17 07:18 Alkaline Phosphatase 69 U/L (38-126) 08/16/17 07:18 Total Creatine Kinase 493 U/L (55-170) H 08/16/17 13:31 CK-MB (Mass) 5.43 ng/mL (0.0-3.38) H 08/16/17 13:31 Troponin I < 0.0120 ng/mL (0.00-0.120) 08/16/17 13:31 NT-Pro-B Natriuret Pep 209 pg/mL (0-900) 08/15/17 18:55 Total Protein 7.6 g/dL (6.3-8.3) 08/16/17 07:18 Albumin 4.0 g/dL (3.5-5.0) 08/16/17 07:18 Globulin 3.6 gm/dL (2.2-3.9) 08/16/17 07:18 Albumin/Globulin Ratio 1.1 (1.0-2.1) 08/16/17 07:18 Triglycerides 141 mg/dL (0-149) 08/16/17 07:18 Cholesterol 149 mg/dL (0-199) 08/16/17 07:18 LDL Cholesterol Direct 85 mg/dL (0-129) 08/16/17 07:18 HDL Cholesterol 43 mg/dL (30-70) 08/16/17 07:18 Free T4 1.56 ng/dL (0.78-2.19) 08/16/17 07:18 TSH 3rd Generation 2.46 mIU/L (0.46-4.68) 08/16/17 07:18 - Hospital Course Hospital Course: Patient is a 72 y/o M with PMHX of CAD, HTN, HLD, DM, BPH, GERD who presents today for worsening shortness of breath with chest and back pain for 3 weeks. Patient said he started to notice this 3 weeks ago with no inciting events. He usually can walk 2 blocks without getting short of breath, and although he thinks he still can he admits to feeling more short of breath with daily activities. Patient sleeps with 2 pillows at night which is not new for him. Patient explains the left sided and left upper back pain as tightness. Patient says sometimes he will feel his heart beating rapidly. Patient usually goes the gym, but has not been able to the past few months due to the pain. Patient rates the pain 8/10 and says nothing makes it worse. Patient bought a Salonpas pain patch for his back which helped some. Patient also admits to left foot swelling which has progressively getting worse for the past few weeks. He also has pain in the foot. Patient denies any pain in the calf or leg. Patient denies any recent travel. Patient denies any changes in weight. Patient also admits to worsening vision the past week. Patient says he feels as though his eye glass prescription is no longer strong enough. He says his vision has become more blurry, but denies any double vision. Patient denies any headaches, dizziness, abdominal pain, nausea, vomiting, diarrhea, constipation, dysuria. Yesterday patient went to his primary Dr. Jeanette Waldron because he was not getting any better. She heard crackles on exam and was worried about a CHF exacerbation and wrote the patient a prescription to go the emergency room. Patient did not come in yesterday because he couldn't get a ride from his son until today. Patient last obtained a nuc stress test in 2017 which was normal. patient was seen by Dr. Haider who does not think this is cardiac in nature. negative trops, Normal EKGs. Echo was completed inpt. patient complaining of shoulder pain after working out. No fracture or dislocation on shoulder injury. Patient was discharged in a stable condition. Discharge Exam - Head Exam Head Exam: ATRAUMATIC, NORMAL INSPECTION, NORMOCEPHALIC - Eye Exam Eye Exam: EOMI, Normal appearance, PERRL Pupil Exam: NORMAL ACCOMODATION, PERRL - Respiratory Exam Respiratory Exam: Chest Wall Tenderness (near left shoulder), UNREMARKABLE - Cardiovascular Exam Cardiovascular Exam: REGULAR RHYTHM - GI/Abdominal Exam GI & Abdominal Exam: Normal Bowel Sounds. absent: Distended, Tenderness - Rectal Exam Rectal Exam: NORMAL INSPECTION - Exam Exam: Circumcision, NORMAL INSPECTION External exam: NORMAL EXTERNAL EXAM Speculum exam: NORMAL SPECULUM EXAM Bimanual exam: NORMAL BIMANUAL EXAM - Neurological Exam Neurological exam: Alert, CN II-XII Intact, Normal Gait, Oriented x3, Reflexes Normal - Psychiatric Exam Psychiatric exam: Normal Affect, Normal Mood - Skin Skin Exam: Dry, Intact, Normal Color, Warm Discharge Plan - Follow Up Plan Condition: FAIR Disposition: HOME/ ROUTINE Instructions: Shortness of Breath (Dyspnea) (DC), Chest Pain (DC) Additional Instructions: Please follow up with Crime Victim Specialist in 7-10 days Please follow up with your regular doctor in 7-10 days Please continue taking your home medications please come back to the ED if symptoms continue.
--- NOTE | 2017-08-17 10:02 | VASCLAB ---
PROCEDURE: Left Lower Extremity Venous Duplex Exam. HISTORY: Swelling PRIORS: None. TECHNIQUE: Left common femoral, femoral, popliteal and posterior tibial, peroneal and great saphenous veins were evaluated. Flow was assessed with color Doppler, compressibility, assessment of phasic flow and augmentation response. Report prepared by MIROSLAVA Whitaker, RVT FINDINGS: LEFT: 1. Common Femoral Vein: 1.1. Compressibility - Fully compressible: Thrombus - None : Flow - Phasic: Augmentation -Normal: Reflux - None. 2. Femoral Vein: 2.1. Compressibility - Fully compressible: Thrombus - None: Flow - Phasic: Augmentation -Normal: Reflux - None. 3. Popliteal Vein: 3.1. Compressibility - Fully compressible: Thrombus - None: Flow - Phasic: Augmentation -Normal: Reflux - None. 4. Posterior Tibial Vein: 4.1. Compressibility - Fully compressible: Thrombus - None: Flow - Phasic: Augmentation -Normal: Reflux - None. 5. Peroneal Vein: 5.1. Compressibility - Fully compressible: Thrombus - None: Flow - Phasic: Augmentation -Normal: Reflux - None. 6. Great Saphenous Vein: 6.1. Compressibility - Fully compressible: Thrombus - None: Flow - Phasic: Augmentation - Normal: Reflux - None. 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 Clinical correlation recommended. IMPRESSION: No evidence of deep or superficial vein thrombosis of the left lower extremity with excellent venous flow. Normal valve function noted of the left side. Normal venous flow noted in the right common femoral vein.
--- NOTE | 2017-08-17 10:03 | CARD ---
APPROVED REPORT EXAM: Two-dimensional and M-mode echocardiogram with Doppler and color Doppler. Other Information Quality : GoodRhythm : NSR INDICATION Chest Pain RISK FACTORS Hypertension M-Mode DIMENSIONS RVDd2.26 (2.1-3.2cm)Left Atrium (MM)4.69 (2.5-4.0cm) IVSd2.03 (0.7-1.1cm)Aortic Root2.93 (2.2-3.7cm) LVDd3.28 (4.0-5.6cm)Aortic Cusp Exc.1.76 (1.5-2.0cm) PWd1.87 (0.7-1.1cm)FS (%) 38 % LVDs2.03 (2.0-3.8cm)LVEF (%)70 (>50%) Aortic Valve AoV Peak Ecgbyjoq472.0cm/Rudi Peak GR.21mmHgAI P 1/2 [id number] Mitral Valve MV E Cseaugva00.0cm/sMV A Gceebfxt91.9cm/sE/A ratio0.5 TDI E/Lateral E'0.0E/Medial E'0.0 Tricuspid Valve TR Peak [id number]/sTR Peak Gr.[id number] LEFT VENTRICLE There is moderate to severe concentric left ventricular hypertrophy. Left ventricle systolic function is normal. The Ejection Fraction is 65-70%. There is normal LV segmental wall motion. The left ventricular diastolic function is abnormal- Grade I-abnormal relaxation pattern. No left ventricle thrombus noted on this study. RIGHT VENTRICLE The right ventricle is normal size. The right ventricular systolic function is normal. ATRIA The left atrium is moderately dilated. The right atrium size is normal. AORTIC VALVE The aortic valve is mildly thickened. The aortic valve is probably trileaflet. There is trace to mild aortic regurgitation. There is no aortic valvular stenosis. There is no aortic valvular vegetation. MITRAL VALVE Mitral annular calcification is mild. There is no evidence of mitral valve prolapse. There is no mitral valve stenosis. There is no mitral valve regurgitation noted. TRICUSPID VALVE The tricuspid valve is normal in structure. There is mild tricuspid regurgitation. Right ventricular systolic pressure is estimated at 30 mmHg. There is no pulmonary hypertension. There is no tricuspid valve prolapse or vegetation. There is no tricuspid valve stenosis. PULMONIC VALVE The pulmonic valve is not well visualized. There is no pulmonic valvular regurgitation. GREAT VESSELS The aortic root is normal in size. The IVC is normal in size and collapses >50% with inspiration. PERICARDIAL EFFUSION There is no pericardial effusion. There is no pleural effusion. <Conclusion> There is moderate to severe concentric left ventricular hypertrophy. Left ventricle systolic function is normal. The Ejection Fraction is 65-70%. The left ventricular diastolic function is abnormal- Grade I-abnormal relaxation pattern. The right ventricle is normal size. The right ventricular systolic function is normal. The left atrium is moderately dilated. The right atrium size is normal. There is trace to mild aortic regurgitation. There is mild tricuspid regurgitation.
== END 2017-08-16 16:45 | disposition home or self-care (01) | DRG 313 ==
LOC: C.ER 17:39 → C.9E 20:44 → C.6T 22:17
PROVIDERS: ADMIT Internal Medicine; ATTEND Internal Medicine
DX: R07.89 Other chest pain (principal); I11.0 Hypertensive heart disease with heart failure; I50.9 Heart failure, unspecified; E78.00 Pure hypercholesterolemia, unspecified; E11.9 Type 2 diabetes mellitus without complications; I25.10 Atherosclerotic heart disease of native coronary artery without angina pectoris; M54.2 Cervicalgia; K21.9 Gastro-esophageal reflux disease without esophagitis; N40.0 Benign prostatic hyperplasia without lower urinary tract symptoms; Z96.641 Presence of right artificial hip joint; Z79.82 Long term (current) use of aspirin; Z79.84 Long term (current) use of oral hypoglycemic drugs

== ENCOUNTER 2018-03-18 14:48 | Inpatient (IN) | payer MEDICARE ==
[2018-03-18 14:48] VITALS: BMI 33.4
[2018-03-18 15:38] LABS: BASO # 0.1 K/uL (0.0-0.2); EOS # 0.1 K/uL (0.0-0.7); EOS % 1.9 % (0.0-4.0); LYMPH % 35.1 % (20.0-40.0); MEAN CELL VOLUME 70.2 fL (80.0-94.0); MEAN CORPUSCULAR HEMOGLOBIN 22.2 pg (27.0-31.0); MEAN CORPUSCULAR HGB CONC 31.6 g/dL (33.0-37.0); MEAN PLATELET VOLUME 9.3 fL (7.2-11.7); MONO # 0.6 K/uL (0.0-0.8); MONO % 10.1 % (0.0-10.0); NEUT # 2.9 K/uL (1.8-7.0); NEUT % 51.9 % (50.0-75.0); NRBC % 0.1 % (0.0-2.0); RBC 6.31 Mil/uL (4.40-5.90); RED CELL DISTRIBUTION WIDTH 17.7 % (11.5-14.5); WHITE BLOOD COUNT 5.6 K/uL (4.8-10.8)
[2018-03-18 15:52] LABS: BLOOD UREA NITROGEN 12 mg/dL (9-20); CALCIUM 9.4 mg/dl (8.6-10.4); GFR NON-AFRICAN AMERICAN > 60; LIPASE 61 U/L (23-300)
--- NOTE | 2018-03-18 15:53 | RAD ---
Date of service: 03/18/2018 HISTORY: SOB COMPARISON: Portable chest 08/15/2017. FINDINGS: LUNGS: No active pulmonary disease. PLEURA: No significant pleural effusion identified, no pneumothorax apparent. CARDIOVASCULAR: No aortic atherosclerotic calcification present. Normal cardiac size. No pulmonary vascular congestion. OSSEOUS STRUCTURES: No significant abnormalities. VISUALIZED UPPER ABDOMEN: Normal. OTHER FINDINGS: None. IMPRESSION: No acute cardiopulmonary disease appreciated.
[2018-03-18 16:04] LABS: ALB/GLOB RATIO 1.3 (1.0-2.1); ALBUMIN 4.6 g/dL (3.5-5.0); ALT/SGPT 16 U/L (21-72); AST/SGOT 56 U/L (17-59); B-TYPE NATRIURETIC PEPTIDE 460 pg/mL (0-900)
[2018-03-18 16:06] LABS: INR 1.1; PROTHROMBIN TIME 11.6 SECONDS (9.7-12.2)
[2018-03-18] MEDS ORDERED: Aspirin 325 mg EC Tablets PO STA (16:44)
--- NOTE | 2018-03-18 16:47 | C.PDOC ---
History Of Present Illness 73 year old male, whose past medical history includes hypertension and diabetes, presents to the ED for evaluation of a burning and heaviness sensation to his chest and left shoulder which has been worsening since onset one week ago. Patient states symptoms worsened today. He was evaluated by his PMD today and advised to return to the ED for further evaluation. Patient denies fever, chills, shortness of breath, abdominal pain, nausea, vomiting. Time Seen by Provider: 03/18/18 15:01 Chief Complaint (Nursing): Chest Pain History Per: Patient History/Exam Limitations: no limitations Onset/Duration Of Symptoms: Hrs Current Symptoms Are (Timing): Worse Quality: Burning Additional History Per: Patient Past Medical History Reviewed: Historical Data, Nursing Documentation, Vital Signs Vital Signs: Last Vital Signs Temp 97.7 F 03/18/18 14:52 Pulse 96 H 03/18/18 14:52 Resp 18 03/18/18 14:52 BP 177/84 H 03/18/18 14:52 Pulse Ox 99 03/18/18 14:52 - Medical History PMH: HTN, Hypercholesterolemia Denies: Chronic Kidney Disease Surgical History: No Surg Hx Family History: States: Unknown Family Hx - Social History Hx Alcohol Use: Yes (occassional) Hx Substance Use: No - Immunization History Hx Tetanus Toxoid Vaccination: Yes Hx Influenza Vaccination: Yes Hx Pneumococcal Vaccination: Yes Review Of Systems Constitutional: Negative for: Fever, Chills Cardiovascular: Positive for: Chest Pain Respiratory: Negative for: Shortness of Breath Musculoskeletal: Positive for: Shoulder Pain (left) Physical Exam - Physical Exam Appears: Non-toxic, No Acute Distress, Other (comfortable ) Skin: Normal Color, Warm, Dry Head: Atraumatic, Normacephalic Eye(s): bilateral: Normal Inspection Oral Mucosa: Moist Neck: Supple Chest: Symmetrical, No Deformity, No Tenderness Cardiovascular: Rhythm Regular, No Murmur Respiratory: Normal Breath Sounds, No Rales, No Rhonchi, No Wheezing Gastrointestinal/Abdominal: Soft, Tenderness (mild, to left upper quadrant ), No Guarding, No Rebound Back: No Vertebral Tenderness, No Paraspinal Tenderness Extremity: Normal ROM, Capillary Refill (less than 2 seconds ) Neurological/Psych: Oriented x3, Normal Speech, Normal Cognition ED Course And Treatment - Laboratory Results Result Diagrams: 03/18/18 15:32 03/18/18 15:32 ECG: Interpreted By Me, Viewed By Me ECG Rhythm: Sinus Rhythm Interpretation Of ECG: Normal Sinus Rhythm at rate 84bpm. Normal intervals, normal axis. T wave inversions in lead I, aVL, V5, V6. Rate From EC O2 Sat by Pulse Oximetry: 99 (on RA) Pulse Ox Interpretation: Normal Medical Decision Making Medical Decision Making: Progress: Bloodwork, CXR, EKG ordered and reviewed. Aspirin PO given. Disposition Discussed With : Jane Avalos Doctor Will See Patient In The: Hospital Counseled Patient/Family Regarding: Studies Performed, Diagnosis - Disposition Disposition: HOSPITALIZED Disposition Time: 16:47 Condition: FAIR - Clinical Impression Clinical Impression: Chest pain - Scribe Statement The provider has reviewed the documentation as recorded by the Scribe (Berna Soliz) Provider Attestation: All medical record entries made by the Scribe were at my direction and per sonally dictated by me. I have reviewed the chart and agree that the record accurately reflects my personal performance of the history, physical exam, medical decision making, and the department course for this patient. I have also personally directed, reviewed, and agree with the discharge instructions and disposition.
[2018-03-18] MEDS ORDERED: Glucagon Recombinant 1 mg Inj IM PRN (17:47)
[2018-03-18] MEDS ORDERED: Dextrose 50% SYRINGE Inj (50 ml) IV PRN (17:47)
[2018-03-18] MEDS: Metoprolol Succinate 25 mg XL Tab PO SCH (18:10)
[2018-03-18] MEDS: (Novolog) Insulin Aspart, Recombinant 100 u/ml 10 ml vial SC SCH (21:41)
[2018-03-19 02:01] VITALS: RESP 20
[2018-03-19] MEDS: (Novolog) Insulin Aspart, Recombinant 100 u/ml 10 ml vial SC SCH ×4 (07:30→21:20)
[2018-03-19 08:53] LABS: BASO # 0.1 K/uL (0.0-0.2); EOS # 0.2 K/uL (0.0-0.7); HEMOGLOBIN 13.4 g/dL (12.0-18.0); LYMPH # 1.5 K/uL (1.0-4.3); LYMPH % 30.5 % (20.0-40.0); MEAN CELL VOLUME 69.8 fL (80.0-94.0); MEAN CORPUSCULAR HEMOGLOBIN 22.8 pg (27.0-31.0); MEAN CORPUSCULAR HGB CONC 32.6 g/dL (33.0-37.0); MEAN PLATELET VOLUME 9.4 fL (7.2-11.7); MONO # 0.5 K/uL (0.0-0.8); NEUT # 2.8 K/uL (1.8-7.0); NEUT % 55.5 % (50.0-75.0); NRBC % 0.1 % (0.0-2.0); RBC 5.86 Mil/uL (4.40-5.90); RED CELL DISTRIBUTION WIDTH 17.6 % (11.5-14.5); WHITE BLOOD COUNT 5.1 K/uL (4.8-10.8)
[2018-03-19 09:27] LABS: ALB/GLOB RATIO 1.2 (1.0-2.1); ALBUMIN 3.7 g/dL (3.5-5.0); ALT/SGPT 24 U/L (21-72); AST/SGOT 29 U/L (17-59); BLOOD UREA NITROGEN 13 mg/dL (9-20); CALCIUM 9.1 mg/dl (8.6-10.4); GFR NON-AFRICAN AMERICAN > 60
[2018-03-19] MEDS: Multiple Vitamins Tab PO SCH (09:57)
[2018-03-19] MEDS: Metoprolol Succinate 25 mg XL Tab PO SCH (09:58)
--- NOTE | 2018-03-19 10:47 | CP.PCM.HP ---
History of Present Illness - History of Present Illness History of Present Illness: pt came for feeling burning sensation and discomfort for aweeke l side chest and radiating to stomach and back Present on Admission - Present on Admission Any Indicators Present on Admission: Yes History of Uncontrolled Diabetes: Yes Review of Systems - Review of Systems Systems not reviewed;Unavailable: Acuity of Condition - Constitutional Constitutional: As Per HPI - EENT Eyes: As Per HPI Nose/Mouth/Throat: As Per HPI - Cardiovascular Cardiovascular: As Per HPI - Respiratory Respiratory: As Per HPI - Gastrointestinal Gastrointestinal: Heartburn - Genitourinary Genitourinary: As Per HPI - Reproductive: Male Reproductive:Male: As Per HPI - Musculoskeletal Musculoskeletal: As Per HPI - Integumentary Integumentary: As Per HPI - Neurological Neurological: As Per HPI - Psychiatric Psychiatric: As Per HPI - Endocrine Endocrine: As Per HPI Additional Comments: dm controled - Hematologic/Lymphatic Hematologic: As Per HPI Past Patient History - Infectious Disease Hx of Infectious Diseases: None - Past Medical History & Family History Past Medical History?: Yes - Past Social History Smoking Status: Never Smoked - CARDIAC Hx Cardiac Disorders: Yes Hx Hypercholesterolemia: Yes Hx Hypertension: Yes - PULMONARY Hx Respiratory Disorders: No - NEUROLOGICAL Hx Neurological Disorder: No - HEENT Hx HEENT Problems: Yes Other/Comment: Blurry Vision,wears eyeglasses - RENAL Hx Chronic Kidney Disease: No - ENDOCRINE/METABOLIC Hx Endocrine Disorders: Yes Hx Diabetes Mellitus Type 2: Yes - HEMATOLOGICAL/ONCOLOGICAL Hx Blood Disorders: No - INTEGUMENTARY Hx Dermatological Problems: No - MUSCULOSKELETAL/RHEUMATOLOGICAL Hx Musculoskeletal Disorders: Yes Hx Falls: No Hx Fractures: Yes ("54 years ago right leg") - GASTROINTESTINAL Hx Gastrointestinal Disorders: No - GENITOURINARY/GYNECOLOGICAL Hx Genitourinary Disorders: Yes Hx Prostate Problems: Yes - PSYCHIATRIC Hx Psychophysiologic Disorder: No Hx Substance Use: No - SURGICAL HISTORY Hx Surgeries: Yes Hx Joint Replacement: Yes (RT HIP 53 years ago) Other/Comment: Abdominal sx - ANESTHESIA Hx Anesthesia: Yes Hx Anesthesia Reactions: No Hx Malignant Hyperthermia: No Meds Allergies/Adverse Reactions: Allergies Allergy/AdvReac Type Severity Reaction Status Date / Time No Known Allergies Allergy Verified 01/22/17 15:37 Physical Exam - Constitutional Appears: Non-toxic - Head Exam Head Exam: NORMAL INSPECTION - Eye Exam Eye Exam: Normal appearance Pupil Exam: NORMAL ACCOMODATION - ENT Exam ENT Exam: Mucous Membranes Moist - Neck Exam Neck exam: Positive for: Full Rom - Respiratory Exam Respiratory Exam: Clear to Auscultation Bilateral - Cardiovascular Exam Cardiovascular Exam: REGULAR RHYTHM - GI/Abdominal Exam GI & Abdominal Exam: Normal Bowel Sounds - Exam Exam: NORMAL INSPECTION - Back Exam Back exam: FULL ROM, paraspinal tenderness - Neurological Exam Neurological exam: Normal Gait, Oriented x3 - Psychiatric Exam Psychiatric exam: Normal Affect - Skin Skin Exam: Dry, Intact, Normal Color Results - Vital Signs Recent Vital Signs: Last Vital Signs Temp 98.1 F 03/18/18 23:40 Pulse 61 03/19/18 01:00 Resp 20 03/18/18 23:40 BP 153/75 H 03/19/18 04:15 Pulse Ox 98 03/18/18 23:40 - Labs Result Diagrams: 03/19/18 08:43 03/19/18 08:43 Labs: Laboratory Results - last 24 hr 03/18/18 03/18/18 03/18/18 15:32 15:32 15:32 WBC 5.6 RBC 6.31 H Hgb 14.0 Hct 44.3 MCV 70.2 L MCH 22.2 L MCHC 31.6 L RDW 17.7 H Plt Count 159 MPV 9.3 Neut % (Auto) 51.9 Lymph % (Auto) 35.1 [place] % (Auto) 10.1 H Eos % (Auto) 1.9 Baso % (Auto) 1.0 Neut # (Auto) 2.9 Lymph # (Auto) 2.0 [place] # (Auto) 0.6 Eos # (Auto) 0.1 Baso # (Auto) 0.1 PT 11.6 INR 1.1 APTT 32 Sodium 135 Potassium 5.5 H Chloride 101 Carbon Dioxide 26 Anion Gap 13 BUN 12 Creatinine 0.8 Est GFR ( Amer) > 60 Est GFR (Non-Af Amer) > 60 POC Glucose (mg/dL) Random Glucose 108 Calcium 9.4 Phosphorus Magnesium Total Bilirubin 1.3 AST 56 ALT 16 L D Alkaline Phosphatase 64 Troponin I 0.0130 NT-Pro-B Natriuret Pep 460 Total Protein 8.1 Albumin 4.6 Globulin 3.5 Albumin/Globulin Ratio 1.3 Lipase 61 TSH 3rd Generation 1.98 03/18/18 03/18/18 03/19/18 20:01 21:32 06:27 WBC RBC Hgb Hct MCV MCH MCHC RDW Plt Count MPV Neut % (Auto) Lymph % (Auto) [place] % (Auto) Eos % (Auto) Baso % (Auto) Neut # (Auto) Lymph # (Auto) [place] # (Auto) Eos # (Auto) Baso # (Auto) PT INR APTT Sodium Potassium Chloride Carbon Dioxide Anion Gap BUN Creatinine Est GFR ( Amer) Est GFR (Non-Af Amer) POC Glucose (mg/dL) 127 H 118 H Random Glucose Calcium Phosphorus Magnesium Total Bilirubin AST ALT Alkaline Phosphatase Troponin I < 0.0120 NT-Pro-B Natriuret Pep Total Protein Albumin Globulin Albumin/Globulin Ratio Lipase TSH 3rd Generation 03/19/18 03/19/18 03/19/18 08:43 08:43 08:43 WBC 5.1 RBC 5.86 Hgb 13.4 Hct 40.9 MCV 69.8 L MCH 22.8 L MCHC 32.6 L RDW 17.6 H Plt Count 153 MPV 9.4 Neut % (Auto) 55.5 Lymph % (Auto) 30.5 [place] % (Auto) 10.0 Eos % (Auto) 3.0 Baso % (Auto) 1.0 Neut # (Auto) 2.8 Lymph # (Auto) 1.5 [place] # (Auto) 0.5 Eos # (Auto) 0.2 Baso # (Auto) 0.1 PT INR APTT Sodium 137 Potassium 4.4 Chloride 101 Carbon Dioxide 26 Anion Gap 14 BUN 13 Creatinine 0.9 Est GFR ( Amer) > 60 Est GFR (Non-Af Amer) > 60 POC Glucose (mg/dL) Random Glucose 127 H Calcium 9.1 Phosphorus 3.4 Magnesium 2.1 Total Bilirubin 0.8 AST 29 ALT 24 Alkaline Phosphatase 54 Troponin I < 0.0120 NT-Pro-B Natriuret Pep Total Protein 6.7 Albumin 3.7 Globulin 3.0 Albumin/Globulin Ratio 1.2 Lipase TSH 3rd Generation Assessment & Plan - Assessment and Plan (Free Text) Assessment: ac chest pain ht burn htn Plan: await cardiology consult add protonx - Date & Time Date: 03/19/18 Time: 10:49
--- NOTE | 2018-03-19 15:49 | CP.PCM.CON ---
History of Present Illness - History of Present Illness History of Present Illness: 73 yo male with h/o HTN/HLD and 2D presents with complaints of chest, back and epigastric pain. States has been getting recurrent pain, burning sensation around left anterior chest wall, epigastric area and back pain. Described as intermittent dull, at rest or exertion, going on for days.Denies diaphoresis, palpitations, nausea, fever, chills, or diarrhea. Patient had a cardiac cath at [facility] in 2017, with non-obstructive CAD. Preserved LV systolic function in 2018. Non-smoker No FH CAD/SCD Review of Systems - Review of Systems All systems: reviewed and no additional remarkable complaints except Review of Systems: all others are negative except HPI Past Patient History - Infectious Disease Hx of Infectious Diseases: None - Past Medical History & Family History Past Medical History?: Yes - Past Social History Smoking Status: Never Smoked Chewing Tobacco Use: No Cigar Use: No Alcohol: None - CARDIAC Hx Cardiac Disorders: Yes Hx Hypercholesterolemia: Yes Hx Hypertension: Yes - PULMONARY Hx Respiratory Disorders: No - NEUROLOGICAL Hx Neurological Disorder: No - HEENT Hx HEENT Problems: Yes Other/Comment: Blurry Vision,wears eyeglasses - RENAL Hx Chronic Kidney Disease: No - ENDOCRINE/METABOLIC Hx Endocrine Disorders: Yes Hx Diabetes Mellitus Type 2: Yes - HEMATOLOGICAL/ONCOLOGICAL Hx Blood Disorders: No - INTEGUMENTARY Hx Dermatological Problems: No - MUSCULOSKELETAL/RHEUMATOLOGICAL Hx Musculoskeletal Disorders: Yes Hx Falls: No Hx Fractures: Yes ("54 years ago right leg") - GASTROINTESTINAL Hx Gastrointestinal Disorders: No - GENITOURINARY/GYNECOLOGICAL Hx Genitourinary Disorders: Yes Hx Prostate Problems: Yes - PSYCHIATRIC Hx Psychophysiologic Disorder: No Hx Substance Use: No - SURGICAL HISTORY Hx Surgeries: Yes Hx Joint Replacement: Yes (RT HIP 53 years ago) Other/Comment: Abdominal sx - ANESTHESIA Hx Anesthesia: Yes Hx Anesthesia Reactions: No Hx Malignant Hyperthermia: No Meds Allergies/Adverse Reactions: Allergies Allergy/AdvReac Type Severity Reaction Status Date / Time No Known Allergies Allergy Verified 01/22/17 15:37 - Medications Medications: Current Medications Aspirin (Aspirin Chewable) 81 mg PO DAILY [facility] Last Admin: 03/19/18 09:57 Dose: 81 mg Dextrose (Dextrose 50% Inj) 0 ml IV STAT PRN; Protocol PRN Reason: Hypoglycemia Protocol Dextrose (Glutose 15) 0 gm PO ONCE PRN; Protocol PRN Reason: Hypoglycemia Protocol Glucagon (Glucagen Diagnostic Kit) 0 mg IM STAT PRN; Protocol PRN Reason: Hypoglycemia Protocol Hydrochlorothiazide (Hydrodiuril) 25 mg PO DAILY [facility] Last Admin: 03/19/18 09:58 Dose: 25 mg Dextrose (Dextrose 5% In Water 1000 Ml) 1,000 mls @ 0 mls/hr IV .Q0M PRN; Protocol PRN Reason: Hypoglycemia Protocol Insulin Aspart (Novolog) 0 unit SC ACHS [facility]; Protocol Last Admin: 03/19/18 11:30 Dose: Not Given Losartan Potassium (Cozaar) 100 mg PO DAILY [facility] Last Admin: 03/19/18 09:57 Dose: 100 mg Metoprolol Succinate (Toprol Xl) 25 mg PO DAILY [facility] Last Admin: 03/19/18 09:58 Dose: 25 mg Multivitamins (Hexavitamin) 1 tab PO DAILY [facility] Last Admin: 03/19/18 09:57 Dose: 1 tab Pantoprazole Sodium (Protonix Ec Tab) 40 mg PO DAILY [facility] Rosuvastatin Calcium (Crestor) 10 mg PO HS [facility] Last Admin: 03/18/18 21:22 Dose: 10 mg Tamsulosin HCl (Flomax) 0.4 mg PO BID [facility] Last Admin: 03/19/18 09:57 Dose: 0.4 mg Physical Exam - Constitutional Appears: Well, Non-toxic - Head Exam Head Exam: ATRAUMATIC, NORMOCEPHALIC - Eye Exam Eye Exam: EOMI Pupil Exam: PERRL - ENT Exam ENT Exam: Mucous Membranes Dry - Neck Exam Neck exam: Negative for: Lymphadenopathy - Respiratory Exam Respiratory Exam: Chest Wall Tenderness, Clear to Auscultation Bilateral, NORMAL BREATHING PATTERN - Cardiovascular Exam Cardiovascular Exam: REGULAR RHYTHM, RRR, +S1, +S2. absent: JVD - GI/Abdominal Exam GI & Abdominal Exam: Tenderness Additional comments: epigastric - Back Exam Back exam: tenderness, vertebral tenderness Additional comments: left upper back - Neurological Exam Neurological exam: Alert, CN II-XII Intact, Oriented x3 - Psychiatric Exam Psychiatric exam: Normal Affect, Normal Mood - Skin Skin Exam: Dry, Normal Color Results - Vital Signs Recent Vital Signs: Last Vital Signs Temp 98.1 F 03/18/18 23:40 Pulse 68 03/19/18 07:30 Resp 20 03/18/18 23:40 BP 153/75 H 03/19/18 04:15 Pulse Ox 98 03/18/18 23:40 - Labs Result Diagrams: 03/19/18 08:43 03/19/18 08:43 Labs: Laboratory Results - last 24 hr 03/18/18 03/18/18 03/18/18 15:32 15:32 20:01 WBC RBC Hgb Hct MCV MCH MCHC RDW Plt Count MPV Neut % (Auto) Lymph % (Auto) [place] % (Auto) Eos % (Auto) Baso % (Auto) Neut # (Auto) Lymph # (Auto) [place] # (Auto) Eos # (Auto) Baso # (Auto) PT 11.6 INR 1.1 APTT 32 Sodium 135 Potassium 5.5 H Chloride 101 Carbon Dioxide 26 Anion Gap 13 BUN 12 Creatinine 0.8 Est GFR ( Amer) > 60 Est GFR (Non-Af Amer) > 60 POC Glucose (mg/dL) Random Glucose 108 Calcium 9.4 Phosphorus Magnesium Total Bilirubin 1.3 AST 56 ALT 16 L D Alkaline Phosphatase 64 Troponin I 0.0130 < 0.0120 NT-Pro-B Natriuret Pep 460 Total Protein 8.1 Albumin 4.6 Globulin 3.5 Albumin/Globulin Ratio 1.3 Lipase 61 TSH 3rd Generation 1.98 03/18/18 03/19/18 03/19/18 21:32 06:27 08:43 WBC 5.1 RBC 5.86 Hgb 13.4 Hct 40.9 MCV 69.8 L MCH 22.8 L MCHC 32.6 L RDW 17.6 H Plt Count 153 MPV 9.4 Neut % (Auto) 55.5 Lymph % (Auto) 30.5 [place] % (Auto) 10.0 Eos % (Auto) 3.0 Baso % (Auto) 1.0 Neut # (Auto) 2.8 Lymph # (Auto) 1.5 [place] # (Auto) 0.5 Eos # (Auto) 0.2 Baso # (Auto) 0.1 PT INR APTT Sodium Potassium Chloride Carbon Dioxide Anion Gap BUN Creatinine Est GFR ( Amer) Est GFR (Non-Af Amer) POC Glucose (mg/dL) 127 H 118 H Random Glucose Calcium Phosphorus Magnesium Total Bilirubin AST ALT Alkaline Phosphatase Troponin I NT-Pro-B Natriuret Pep Total Protein Albumin Globulin Albumin/Globulin Ratio Lipase TSH 3rd Generation 03/19/18 03/19/18 03/19/18 08:43 08:43 11:23 WBC RBC Hgb Hct MCV MCH MCHC RDW Plt Count MPV Neut % (Auto) Lymph % (Auto) [place] % (Auto) Eos % (Auto) Baso % (Auto) Neut # (Auto) Lymph # (Auto) [place] # (Auto) Eos # (Auto) Baso # (Auto) PT INR APTT Sodium 137 Potassium 4.4 Chloride 101 Carbon Dioxide 26 Anion Gap 14 BUN 13 Creatinine 0.9 Est GFR ( Amer) > 60 Est GFR (Non-Af Amer) > 60 POC Glucose (mg/dL) 97 Random Glucose 127 H Calcium 9.1 Phosphorus 3.4 Magnesium 2.1 Total Bilirubin 0.8 AST 29 ALT 24 Alkaline Phosphatase 54 Troponin I < 0.0120 NT-Pro-B Natriuret Pep Total Protein 6.7 Albumin 3.7 Globulin 3.0 Albumin/Globulin Ratio 1.2 Lipase TSH 3rd Generation Assessment & Plan (1) Chest pain Assessment and Plan: ACS ruled out. Hemodynamically stable. Had non-obstructive CAD 2017 on cath Possibly atypical chest pain, likely related to GI etiology Cont with PPI Status: Acute (2) Hypertension Assessment and Plan: Controlled Cont with meds Status: Acute (3) Mixed hyperlipidemia Status: Acute (4) Mixed hyperlipidemia Assessment and Plan: LDL 85 Cont with statin Status: Acute
[2018-03-20] MEDS: (Novolog) Insulin Aspart, Recombinant 100 u/ml 10 ml vial SC SCH ×4 (08:30→21:37)
[2018-03-20] MEDS: Pantoprazole 40 mg EC Tab PO SCH (09:55)
[2018-03-20] MEDS: Multiple Vitamins Tab PO SCH (09:56)
[2018-03-20] MEDS: Metoprolol Succinate 25 mg XL Tab PO SCH (09:56)
--- NOTE | 2018-03-20 10:27 | CP.PCM.PN ---
Subjective - Date & Time of Evaluation Date of Evaluation: 03/20/18 Time of Evaluation: 10:24 - Subjective Subjective: pt still feels chest burning radiating to stomack and back hx cad htn dm Objective - Vital Signs/Intake and Output Vital Signs (last 24 hours): Temp Pulse Resp BP Pulse Ox 97.8 F 62 20 142/73 98 03/20/18 07:07 03/20/18 07:07 03/20/18 07:07 03/20/18 07:07 03/20/18 07:07 Intake and Output: 03/20/18 03/20/18 06:59 18:59 Intake Total 150 Balance 150 - Medications Medications: Current Medications Aspirin (Aspirin Chewable) 81 mg PO DAILY [facility] Last Admin: 03/20/18 09:55 Dose: 81 mg Dextrose (Dextrose 50% Inj) 0 ml IV STAT PRN; Protocol PRN Reason: Hypoglycemia Protocol Dextrose (Glutose 15) 0 gm PO ONCE PRN; Protocol PRN Reason: Hypoglycemia Protocol Glucagon (Glucagen Diagnostic Kit) 0 mg IM STAT PRN; Protocol PRN Reason: Hypoglycemia Protocol Hydrochlorothiazide (Hydrodiuril) 25 mg PO DAILY [facility] Last Admin: 03/20/18 10:04 Dose: 25 mg Dextrose (Dextrose 5% In Water 1000 Ml) 1,000 mls @ 0 mls/hr IV .Q0M PRN; Protocol PRN Reason: Hypoglycemia Protocol Insulin Aspart (Novolog) 0 unit SC ACHS [facility]; Protocol Last Admin: 03/20/18 08:30 Dose: Not Given Losartan Potassium (Cozaar) 100 mg PO DAILY [facility] Last Admin: 03/20/18 09:56 Dose: 100 mg Metoprolol Succinate (Toprol Xl) 25 mg PO DAILY [facility] Last Admin: 03/20/18 09:56 Dose: 25 mg Multivitamins (Hexavitamin) 1 tab PO DAILY [facility] Last Admin: 03/20/18 09:56 Dose: 1 tab Pantoprazole Sodium (Protonix Ec Tab) 40 mg PO DAILY [facility] Last Admin: 03/20/18 09:55 Dose: 40 mg Rosuvastatin Calcium (Crestor) 10 mg PO HS [facility] Last Admin: 03/19/18 21:57 Dose: 10 mg Tamsulosin HCl (Flomax) 0.4 mg PO BID [facility] Last Admin: 03/20/18 09:56 Dose: 0.4 mg - Labs Labs: 11/22/18 08:43 03/19/18 08:43 PT 11.6 SECONDS (9.7-12.2) 03/18/18 15:32 INR 1.1 03/18/18 15:32 APTT 32 SECONDS (21-34) 03/18/18 15:32 - Constitutional Appears: Non-toxic - Head Exam Head Exam: NORMAL INSPECTION - Eye Exam Eye Exam: Normal appearance Pupil Exam: NORMAL ACCOMODATION - ENT Exam ENT Exam: Mucous Membranes Moist - Neck Exam Neck Exam: Normal Inspection - Respiratory Exam Respiratory Exam: NORMAL BREATHING PATTERN - Cardiovascular Exam Cardiovascular Exam: REGULAR RHYTHM - GI/Abdominal Exam GI & Abdominal Exam: Normal Bowel Sounds - Extremities Exam Extremities Exam: Normal Inspection - Back Exam Back Exam: NORMAL INSPECTION - Neurological Exam Neurological Exam: Alert, Normal Gait, Oriented x3 - Psychiatric Exam Psychiatric exam: Normal Affect - Skin Skin Exam: Normal Color Assessment and Plan - Assessment and Plan (Free Text) Assessment: chest pain atypical possibly reflux but pt has cad hx htn dm Plan: echo today gi [facility]
--- NOTE | 2018-03-21 02:04 | CON ---
DATE: 03/20/[address] Burris to Dr. Jane Avalos. I was called for GI consultation by the admitting MD. The patient was seen and fully examined on 03/20/2018 as requested by the admitting medical staff. The entire chart is reviewed including but not limited to the most recent lab and radiology study results, current and the previous medication list, current and previous medical events, allergy to medication list as well as all the available current and previous medical records. Case was discussed with Dr. Avalos at length at the time of my GI consultation. This is a 73-year-old male who was admitted to the hospital through the emergency room with a main complaint of mid to lower sternal and epigastric heaviness and burning sensation, somewhat involving the left shoulder on and off for about a week or so prior to his admission with dyspepsia, nausea and generalized body ache. The patient denied any actual significant shortness of breath, chills or fever. No reported vomiting or evidence of active GI bleeding. No actual chest pain before. PAST MEDICAL HISTORY: Including mainly but not limited to, 1. Hypertension. 2. Peptic ulcer disease. 3. Hyperlipidemia. FAMILY HISTORY Unknown. SOCIAL HISTORY: Positive for occasional alcohol intake. CURRENT MEDICATIONS: Post-admission medication lists were reviewed. ALLERGY TO MEDICATION: LIST IS REVIEWED. Initial blood workup at the time of the admission showed normal CBC but increased potassium to 5.5. PHYSICAL EXAMINATION GENERAL: A 73-year-old male who appears to be awake, alert, oriented. Reported history also of diabetes mellitus, responding well to verbal stimuli, afebrile. VITAL SIGNS: Pulse of 94, respiratory rate 20-22, blood pressure 172/82 at the time he was seen by me. HEENT: Showed pale, dry oral mucoid membrane mildly. Nonicteric sclerae. LYMPH NODES: No lymphadenitis or lymphadenopathy. LUNGS: Few scattered mild crepitation with decreased air entry at bases. HEART: Positive S1 and S2 with increased rate. ABDOMEN: Soft with midepigastric tenderness as well as slight upper right and left tenderness. Mildly obese. No mass or organomegaly. No rebound tenderness or guarding. EXTREMITIES: Without edema, clubbing or cyanosis. NEUROLOGICAL: No reported new neurological deficits, sensory or motor. IMPRESSION: 1. Chest pain, cardiac versus noncardiac, with possible re-exacerbation of peptic ulcer disease. 2. Known history of diabetes mellitus with possible diabetic gastroparesis. 3. Rule out biliary tree disorder, rule out an early phase of acute pancreatitis. 4. The possibility of gastric versus duodenal ulcer was raised. 5. Past medical history including mainly hyperlipidemia, hypertension and diabetes mellitus. SUGGESTIONS: 1. Agree with your plan. 2. Serum lipase and amylase level. Proton pump inhibitors. tab one twice a day. Cancer markers. Abdominal ultrasound. Full evaluation by big machine consultant, then the patient is to be scheduled for upper endoscopy when he is more stable clinically. We will follow up closely with you. Thank you for letting me participate in your patient's case management. Tiffany Burris MD
[2018-03-21] MEDS: (Novolog) Insulin Aspart, Recombinant 100 u/ml 10 ml vial SC SCH ×4 (07:57→22:19)
[2018-03-21] MEDS: Multiple Vitamins Tab PO SCH (09:43)
[2018-03-21] MEDS: Lidocaine 5% Patch TD SCH (09:43)
[2018-03-21] MEDS: Metoprolol Succinate 25 mg XL Tab PO SCH (09:43)
[2018-03-21] MEDS: Pantoprazole 40 mg EC Tab PO SCH (09:43)
--- NOTE | 2018-03-21 10:49 | PN ---
DATE: 03/21/2018 LOCATION: 660, bed A. SUBJECTIVE: This is a 73-year-old male seen and examined in rounds with intermittent periods of midepigastric pain somewhat radiates to the back, especially on deep breathing, but no reported actual chest pain, palpitation or significant shortness of breath. No reported chills or fever. Today's lab results showed blood glucose level of 135 and the patient reported to have normal CEA and CA 19-9. It has to be mentioned that the most recent lab done, chest x-ray showed no active disease. PHYSICAL EXAMINATION: GENERAL: This is a 73-year-old male, awake, alert, oriented. VITAL SIGNS: Afebrile with pulse of 70, respiratory rate 20 to 22, blood pressure of 120/68. HEENT: Showed pale dry oral mucoid membrane. Nonicteric sclerae. LUNGS: Few scattered crepitations. Decreased air entry at bases. HEART: Positive S1 and S2. ABDOMEN: Soft. Bowel sounds are present with mild generalized tenderness. No mass or organomegaly. No rebound tenderness or guarding, but specifically midepigastric and midabdominal line tenderness. EXTREMITIES: Without significant clubbing, cyanosis or edema. NEUROLOGIC: No reported new neurological deficits, sensory or motor. IMPRESSION: 1. Chest pain, most likely noncardiac. 2. Known history of hyperlipidemia with hypertension. 3. Poorly controlled hyperglycemia. SUGGESTIONS: 1. Agree with your plan. 2. Abdominal ultrasound with attention to the biliary tree and pancreas. 3. Serum lipase, amylase level. 4. Endoscopic evaluation of the upper GI tract. 5. It has to be mentioned that the patient's last colonoscopy was over 5-6 years ago or more as per his statement and the colonoscopy is to be scheduled later on. 6. We will follow up closely with you. Tiffany Burris MD
--- NOTE | 2018-03-21 11:24 | CP.PCM.PN ---
Subjective - Date & Time of Evaluation Date of Evaluation: 03/21/18 Time of Evaluation: 11:21 - Subjective Subjective: pt still c/o of burning sensation chest and back and epigastric Objective - Vital Signs/Intake and Output Vital Signs (last 24 hours): Temp Pulse Resp BP Pulse Ox 98.0 F 76 20 120/70 99 03/21/18 07:00 03/21/18 09:44 03/21/18 09:44 03/21/18 09:44 03/21/18 09:44 Intake and Output: 03/21/18 03/21/18 06:59 18:59 Intake Total 430 Output Total 1100 Balance -670 - Medications Medications: Current Medications Aspirin (Aspirin Chewable) 81 mg PO DAILY [facility] Last Admin: 03/21/18 09:43 Dose: 81 mg Dextrose (Dextrose 50% Inj) 0 ml IV STAT PRN; Protocol PRN Reason: Hypoglycemia Protocol Dextrose (Glutose 15) 0 gm PO ONCE PRN; Protocol PRN Reason: Hypoglycemia Protocol Glucagon (Glucagen Diagnostic Kit) 0 mg IM STAT PRN; Protocol PRN Reason: Hypoglycemia Protocol Hydrochlorothiazide (Hydrodiuril) 25 mg PO DAILY [facility] Last Admin: 03/21/18 09:43 Dose: 25 mg Dextrose (Dextrose 5% In Water 1000 Ml) 1,000 mls @ 0 mls/hr IV .Q0M PRN; Protocol PRN Reason: Hypoglycemia Protocol Insulin Aspart (Novolog) 0 unit SC ACHS [facility]; Protocol Last Admin: 03/21/18 07:57 Dose: Not Given Lidocaine (Lidoderm) 1 ea TD DAILY [facility] Last Admin: 03/21/18 09:43 Dose: 1 ea Losartan Potassium (Cozaar) 100 mg PO DAILY [facility] Last Admin: 03/21/18 09:43 Dose: 100 mg Metoprolol Succinate (Toprol Xl) 25 mg PO DAILY [facility] Last Admin: 03/21/18 09:43 Dose: 25 mg Multivitamins (Hexavitamin) 1 tab PO DAILY [facility] Last Admin: 03/21/18 09:43 Dose: 1 tab Pantoprazole Sodium (Protonix Ec Tab) 40 mg PO DAILY [facility] Last Admin: 03/21/18 09:43 Dose: 40 mg Rosuvastatin Calcium (Crestor) 10 mg PO HS [facility] Last Admin: 03/20/18 21:35 Dose: 10 mg Tamsulosin HCl (Flomax) 0.4 mg PO BID [facility] Last Admin: 03/21/18 09:43 Dose: 0.4 mg - Labs Labs: 03/19/18 08:43 03/19/18 08:43 PT 11.6 SECONDS (9.7-12.2) 03/18/18 15:32 INR 1.1 03/18/18 15:32 APTT 32 SECONDS (21-34) 03/18/18 15:32 - Constitutional Appears: Non-toxic - Head Exam Head Exam: NORMOCEPHALIC - Eye Exam Eye Exam: Normal appearance Pupil Exam: NORMAL ACCOMODATION - ENT Exam ENT Exam: Normal Exam - Neck Exam Neck Exam: Normal Inspection - Respiratory Exam Respiratory Exam: Clear to Ausculation Bilateral - Cardiovascular Exam Cardiovascular Exam: REGULAR RHYTHM - GI/Abdominal Exam GI & Abdominal Exam: Normal Bowel Sounds - Exam Exam: NORMAL INSPECTION - Extremities Exam Extremities Exam: Normal Inspection - Back Exam Additional comments: back of the chest tender - Neurological Exam Neurological Exam: Normal Gait, Oriented x3 - Skin Skin Exam: Normal Color Assessment and Plan - Assessment and Plan (Free Text) Assessment: chest pain abn ekg hreflux oesophogitis dm controled Plan: ekg and endoscopy
[2018-03-21 14:45] LABS: SQUAMOUS EPITHIAL 1 /hpf (0-5); URINE BILIRUBIN NEGATIVE (NEGATIVE); URINE BLOOD NEGATIVE (NEGATIVE); URINE CLARITY Clear (Clear); URINE COLOR Yellow (YELLOW); URINE GLUCOSE (UA) 1+ mg/dL (Normal); URINE LEUKOCYTE ESTERASE NEG Leu/uL (Negative); URINE PROTEIN NEGATIVE (NEGATIVE); URINE UROBILINOGEN NORMAL mg/dL (0.2-1.0)
[2018-03-21 21:48] LABS: BLOOD UREA NITROGEN 16 mg/dL (9-20); CALCIUM 9.1 mg/dl (8.6-10.4); GFR NON-AFRICAN AMERICAN > 60
[2018-03-22] MEDS: (Novolog) Insulin Aspart, Recombinant 100 u/ml 10 ml vial SC SCH ×4 (07:39→22:54)
[2018-03-22] MEDS ORDERED: Propofol 10 mg/ml Inj (20 ML) ONE (08:17)
[2018-03-22] MEDS ORDERED: Etomidate 20 mg/10ml Inj IV ONE (08:17)
[2018-03-22] MEDS ORDERED: Oxycodone/Acetaminophen 5/325 mg Tab PO STA (09:32)
[2018-03-22] MEDS: Metoprolol Succinate 25 mg XL Tab PO SCH (09:35)
[2018-03-22] MEDS: Lidocaine 5% Patch TD SCH (09:35)
[2018-03-22] MEDS: Multiple Vitamins Tab PO SCH (09:35)
[2018-03-22] MEDS: Pantoprazole 40 mg EC Tab PO SCH (09:35)
--- NOTE | 2018-03-22 11:40 | CP.PCM.PN ---
Subjective - Date & Time of Evaluation Date of Evaluation: 03/22/18 Time of Evaluation: 11:37 - Subjective Subjective: pt has pain r knee still has epigastric discomfort had endoscopy today Objective - Vital Signs/Intake and Output Vital Signs (last 24 hours): Temp Pulse Resp BP Pulse Ox 98.2 F 98 H 20 130/75 99 03/22/18 09:38 03/22/18 09:38 03/22/18 09:38 03/22/18 09:38 03/22/18 09:38 Intake and Output: 03/22/18 03/22/18 06:59 18:59 Intake Total 300 Output Total 300 Balance -300 300 - Medications Medications: Current Medications Aspirin (Aspirin Chewable) 81 mg PO DAILY [facility] Last Admin: 03/22/18 09:35 Dose: 81 mg Dextrose (Dextrose 50% Inj) 0 ml IV STAT PRN; Protocol PRN Reason: Hypoglycemia Protocol Dextrose (Glutose 15) 0 gm PO ONCE PRN; Protocol PRN Reason: Hypoglycemia Protocol Fluconazole (Diflucan) 100 mg PO DAILY [facility]; Protocol Glucagon (Glucagen Diagnostic Kit) 0 mg IM STAT PRN; Protocol PRN Reason: Hypoglycemia Protocol Hydrochlorothiazide (Hydrodiuril) 25 mg PO DAILY [facility] Last Admin: 03/22/18 09:35 Dose: 25 mg Insulin Aspart (Novolog) 0 unit SC ACHS [facility]; Protocol Last Admin: 03/22/18 07:39 Dose: Not Given Lidocaine (Lidoderm) 1 ea TD DAILY [facility] Last Admin: 03/22/18 09:35 Dose: 1 ea Losartan Potassium (Cozaar) 100 mg PO DAILY [facility] Last Admin: 03/22/18 09:35 Dose: 100 mg Metoclopramide HCl (Reglan) 5 mg PO 0600,1130,1630,2200 [facility] Metoprolol Succinate (Toprol Xl) 25 mg PO DAILY [facility] Last Admin: 03/22/18 09:35 Dose: 25 mg Multivitamins (Hexavitamin) 1 tab PO DAILY [facility] Last Admin: 03/22/18 09:35 Dose: 1 tab Pantoprazole Sodium (Protonix Ec Tab) 40 mg PO DAILY [facility] Last Admin: 03/22/18 09:35 Dose: 40 mg Rosuvastatin Calcium (Crestor) 10 mg PO HS [facility] Last Admin: 03/21/18 22:36 Dose: 10 mg Sucralfate (Carafate Tab) 1 gm PO ACBHS [facility] Tamsulosin HCl (Flomax) 0.4 mg PO BID [facility] Last Admin: 03/22/18 09:36 Dose: 0.4 mg - Labs Labs: 03/19/18 08:43 03/21/18 21:14 PT 11.6 SECONDS (9.7-12.2) 03/18/18 15:32 INR 1.1 03/18/18 15:32 APTT 32 SECONDS (21-34) 03/18/18 15:32 - Constitutional Appears: Non-toxic - Head Exam Head Exam: NORMAL INSPECTION - Eye Exam Eye Exam: Normal appearance - Neck Exam Neck Exam: Normal Inspection - Respiratory Exam Respiratory Exam: Clear to Ausculation Bilateral - GI/Abdominal Exam GI & Abdominal Exam: Soft - Rectal Exam Rectal Exam: NORMAL INSPECTION - Exam Exam: NORMAL INSPECTION - Extremities Exam Additional comments: lknee tender - Back Exam Back Exam: NORMAL INSPECTION - Neurological Exam Neurological Exam: Alert, Oriented x3 - Psychiatric Exam Psychiatric exam: Normal Affect Assessment and Plan - Assessment and Plan (Free Text) Assessment: s/p chest pain lateral ischemia reflux oesophigitis possible arlette infection hiatus hernia dm controled Plan: cont as per orders my plan for dcin am will d.c telemetry
--- NOTE | 2018-03-22 12:45 | RAD ---
Date of service: 03/22/2018 PROCEDURE: Right Knee Radiographs. HISTORY: new onset knee pain COMPARISON: None. FINDINGS: BONES: Normal. No fracture. JOINTS: Mild tricompartmental osteoarthritis. No articular erosion. Medial and lateral compartment chondrocalcinosis. JOINT EFFUSION: None. OTHER FINDINGS: None. IMPRESSION: Tricompartmental osteoarthritis, mild. Medial and lateral chondrocalcinosis.
[2018-03-23 08:16] VITALS: O2SAT 96
[2018-03-23 08:58] VITALS: TEMP 97
[2018-03-23] MEDS ORDERED: Trolamine Salicylate 10% Cream (85 gm) TOP PRN (10:00)
[2018-03-23] MEDS: Multiple Vitamins Tab PO SCH (10:29)
[2018-03-23] MEDS: Pantoprazole 40 mg EC Tab PO SCH (10:29)
[2018-03-23] MEDS: Lidocaine 5% Patch TD SCH (10:30)
[2018-03-23] MEDS: Metoprolol Succinate 25 mg XL Tab PO SCH (10:32)
[2018-03-23 10:33] VITALS: BP 158/67; PULSE 83
--- NOTE | 2018-03-23 11:23 | CP.PCM.PN ---
Subjective - Date & Time of Evaluation Date of Evaluation: 03/23/18 Time of Evaluation: 11:00 - Subjective Subjective: Patient seen today, states feels better, denies any chest pain, sob, abdominal pain, N/V tolerating diet , c/o knee pain vss and labs - reviewed - stable s/p Egd and colonoscopy - see full report for details Objective - Vital Signs/Intake and Output Vital Signs (last 24 hours): Temp Pulse Resp BP Pulse Ox 97.0 F L 83 20 158/67 H 96 03/23/18 07:00 03/23/18 10:32 03/23/18 07:00 03/23/18 10:32 03/23/18 07:00 Intake and Output: 03/23/18 03/23/18 06:59 18:59 Output Total 1100 Balance -1100 - Medications Medications: Current Medications Aspirin (Aspirin Chewable) 81 mg PO DAILY [facility] Last Admin: 03/23/18 10:29 Dose: 81 mg Dextrose (Dextrose 50% Inj) 0 ml IV STAT PRN; Protocol PRN Reason: Hypoglycemia Protocol Dextrose (Glutose 15) 0 gm PO ONCE PRN; Protocol PRN Reason: Hypoglycemia Protocol Fluconazole (Diflucan) 100 mg PO DAILY [facility]; Protocol Last Admin: 03/23/18 10:29 Dose: 100 mg Glucagon (Glucagen Diagnostic Kit) 0 mg IM STAT PRN; Protocol PRN Reason: Hypoglycemia Protocol Hydrochlorothiazide (Hydrodiuril) 25 mg PO DAILY [facility] Last Admin: 03/23/18 10:29 Dose: 25 mg Insulin Aspart (Novolog) 0 unit SC ACHS [facility]; Protocol Last Admin: 03/22/18 22:54 Dose: Not Given Lidocaine (Lidoderm) 1 ea TD DAILY [facility] Last Admin: 03/23/18 10:30 Dose: 1 ea Losartan Potassium (Cozaar) 100 mg PO DAILY [facility] Last Admin: 03/23/18 10:32 Dose: 100 mg Metoclopramide HCl (Reglan) 5 mg PO 0600,1130,1630,2200 [facility] Last Admin: 03/23/18 07:17 Dose: 5 mg Metoprolol Succinate (Toprol Xl) 25 mg PO DAILY [facility] Last Admin: 03/23/18 10:32 Dose: 25 mg Multivitamins (Hexavitamin) 1 tab PO DAILY [facility] Last Admin: 03/23/18 10:29 Dose: 1 tab Pantoprazole Sodium (Protonix Ec Tab) 40 mg PO DAILY [facility] Last Admin: 03/23/18 10:29 Dose: 40 mg Rosuvastatin Calcium (Crestor) 10 mg PO HS [facility] Last Admin: 03/22/18 22:10 Dose: 10 mg Sucralfate (Carafate Tab) 1 gm PO ACBHS [facility] Last Admin: 03/23/18 07:17 Dose: 1 gm Tamsulosin HCl (Flomax) 0.4 mg PO BID [facility] Last Admin: 03/23/18 10:29 Dose: 0.4 mg Trolamine Salicylate (Aspercreme) 1 gm TOP QID PRN PRN Reason: Pain, moderate (4-7) Last Admin: 03/23/18 10:29 Dose: 1 gm - Labs Labs: 03/19/18 08:43 03/21/18 21:14 PT 11.6 SECONDS (9.7-12.2) 03/18/18 15:32 INR 1.1 03/18/18 15:32 APTT 32 SECONDS (21-34) 03/18/18 15:32 Assessment and Plan - Assessment and Plan (Free Text) Assessment: 73 yo male with h/o HTN/HLD admitted with chest, back and epigastric pain troponin x 3 - negative seen by cardiology - atypical chest pain, s/p EGD/- see full report for details D/W Dr. Avalos, cleared fro disscharge home today and f/u with PMD and cardiolgist in 1 week Discharge plan discussed with patient , who understands and agrees with plan
[2018-03-23] MEDS: (Novolog) Insulin Aspart, Recombinant 100 u/ml 10 ml vial SC SCH ×2 (12:18→12:20)
--- NOTE | 2018-03-23 20:02 | CARD ---
APPROVED REPORT Date of service: 03/18/2018 EKG Measurement Heart [id number] <Conclusion> Normal sinus rhythm Possible Left atrial enlargement T wave abnormality, consider lateral ischemia Abnormal ECG
--- NOTE | 2018-03-23 21:05 | CARD ---
APPROVED REPORT Date of service: 03/21/2018 EKG Measurement Heart [id number] <Conclusion> Normal sinus rhythm Possible Left atrial enlargement ST & T wave abnormality, consider lateral ischemia Abnormal ECG
--- NOTE | 2018-03-24 05:55 | PN ---
DATE: 03/23/2018 LOCATION: 660, bed A. SUBJECTIVE: This is 73-year-old male seen and examined at rounds with less complaint of midsternal, mid epigastric pain, but bilateral knee pain on and off. The entire chart is reviewed including but not limited to most recent lab and the radiology study results, current and the previous medication list, current and the previous medical events, and today's lab results showed blood glucose of 128. Rest of the lab results is still pending. The patient's troponin level had been reported to be low. PHYSICAL EXAMINATION: GENERAL: A 73-year-old male awake, alert, and oriented. VITAL SIGNS: Afebrile with heart rate of 80, respiratory rate 20 to 22, blood pressure 138/64. HEENT: Showed pale dry oral mucous membrane. Nonicteric sclerae. LUNGS: Scattered mild crepitation. Decreased air entry at bases. HEART: Positive S1 and S2. ABDOMEN: Soft with mild generalized tenderness. No mass or organomegaly. No rebound tenderness or guarding. LABORATORY DATA: Knee x-ray report, right side is seen. The patient tolerated oral intake well. Pathology report from the recently done upper endoscopy still pending. IMPRESSION: 1. Noncardiac chest pain. 2. Esophageal candidiasis by recent upper endoscopy. 3. Small hiatal hernia. 4. Gastritis, pathology report is still pending with duodenitis. 5. Poorly controlled diabetes mellitus. 6. Known history of hypertension with hyperlipidemia. 7. Arthritis mainly the right knee. SUGGESTION: 1. Continue current management. 2. Proton pump inhibitors. 3. Further recommendation to follow. Tiffany Burris MD
== END 2018-03-23 14:32 | disposition home or self-care (01) | DRG 313 ==
LOC: C.ER 14:48 → C.6T 16:45
PROVIDERS: ADMIT Internal Medicine; ATTEND Internal Medicine
PROC: 0DB68ZX Excision of Stomach, Via Natural or Artificial Opening Endoscopic, Diagnostic (ICD-10-PCS; principal; 2018-03-22 08:00)
DX: R07.89 Other chest pain (principal); K29.00 Acute gastritis without bleeding; I10 Essential (primary) hypertension; E11.65 Type 2 diabetes mellitus with hyperglycemia; E78.2 Mixed hyperlipidemia; K44.9 Diaphragmatic hernia without obstruction or gangrene; I25.10 Atherosclerotic heart disease of native coronary artery without angina pectoris; K21.9 Gastro-esophageal reflux disease without esophagitis; K29.80 Duodenitis without bleeding